=== PATIENT | female | born 1960 | race Caucasian/White ===

== ENCOUNTER → 2023-12-10 | Outpatient (CLI) | payer OTHER, SELFPAY ==
--- NOTE | 2023-12-10 10:18 | US_ITS ---
STUDY: ULTRASOUND OF THE FEMALE PELVIS - COMPLETE REASON FOR EXAM: Female, 63 years old. AUB LMP: Unknown. TECHNIQUE: Transabdominal and Transvaginal TECHNICAL QUALITY: Adequate. COMPARISON: None. FINDINGS: The uterus is retroflexed and is in a midline position. The uterus measures 8.43 x 7.80 x 7.98 cm. Normal uterine cervix. The endometrium measures 5 mm in thickness, and is hyperechoic. There is no demonstrated endometrial mass. Sonography notes at least 3 uterine fibroids with the largest measuring 5.2 x 3.7 x 3.4 cm I.U.D. - The patient does not have an I.U.D. The right ovary is visualized. The right ovary measures 1.8 x 1.5 x 2.4 cm. There is no right ovarian cyst or ovarian mass. There is no visualized right adnexal mass or complex lesion. There is normal arterial and normal venous vascularity. The left ovary is visualized. The left ovary measures 1.5 x 1.1 x 1.3 cm. There is no left ovarian cyst or ovarian mass. There is no visualized left adnexal mass or complex lesion. There is normal arterial and normal venous vascularity. There is no fluid in the cul-de-sac. The bladder is sonographically normal US/Pelvic w/ Transvaginal IMPRESSION: Enlarged fibroid uterus Endometrial thickness is at the upper limits of normal at 5 mm. No suspicious endometrial mass or polyp Sonographically normal ovaries and bladder. Electronically Signed: Fito Silver MD at 15:31 EST ,
--- OUTSIDE RECORDS SUMMARY | 2023-12-10 10:21 | XMS RPT_ITS | CCD ---
Author Name Unknown Address [address] [place] [address] Organization [facility] Care Team Providers Care Jig Mill Operator Name Role Phone CRISTAL AGUAYO Unavailable Unavailable Jocelin Thomson Unavailable Jocelin Thomson Primary Care Provider Jocelin Thomson Unavailable Unavailable Jocelin Thomson Unavailable Unavailab Yudi Sandhu Unavailable Unavailable Jocelin Thomson Primary Care Provider Jocelin Thomson Unavailable [phone] Unavailable Unavailable SHAINA CANNON Admitting Unavailable ALBARO SINGH Attending Unava ilable JOCELIN THOMSON Primary Care CRISTAL Hassan Attending Unavailable CRISTAL AGUAYO Admitting Unavailable JOCELIN THOMSON Primary Care Unavai lable Unavailable Unavailable Unavailable Unavailable Jocelin Thmoson MD Primary Care Provider Sirena Brown Unavailable JOCELIN THOMSON Primary Care FabiennevaCRISTAL Valente Referring Unavailable CRISTAL AGUAYO Attending Unavailable JOCELIN THOMSON Primary Care Unavailab catherine Thomson, Dr. Jocelin Winter Primary Care Un available Disha Bangura Attending Unavailable Lynsey, Dr. Jocelin Winter Attending Un available Lynsey, Dr. Jocelin Winter Referring Un available Lynsey, Dr. Jocelin Winter Primary Care Un available Longsdnisha, Dr. Jocelin Winter Primary Care Un available Disha Bangura Attending Unavailable Lynsey, Dr. 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 Sirena De Leon Referring Unavailable Longsdorf, Jocelin Primary Care Unavailable Longsdorf, Jocelin Attending Unavailable Longsdorf, Jocelin Referring Unavailable Longsdorf, Jocelin Primary Care Unavailable Longsdorf, Jocelin Primary Care Unavailable Bauer, Dr. Becky Alexandra Attending Unav ailable Bauer, Dr. Becky Alexandra Referring Unav ailable Bauer, Dr. Becky Alexandra Attending Unav ailable Longsdorf, Jocelin Primary Care Unavailable Bangura, Jose Disha M Attending Unavailabl e Willem, Ms. Disha Crawford Referring Unavailabl e Longsdorf, Jocelin Primary Care Unavailable BAUERBECKY MCCALL Referring Unavailable LONGSDORF, JOCELIN A Primary Care Unavailab le LONGSDORF JOCELIN A Attending Unavailab le LONGSDORF JOCELIN A Primary Care Unavailab le BAUERBECKY Attending Unavailable LONGSDORF, JOCELIN A Primary Care Unavailab le BAUERBECKY Attending Unavailable LONGSDORF, JOCELIN A Primary Care Unavailab le LONGSDORF JOCLEIN A Attending Unavailab le LONGSDORF JOCELIN A Primary Care Unavailab Jocelin Red MD Primary Care [facility] er ABIGAIL JOVEL Attending Unavailab le JOCELIN THOMSON Primary Care ABIGAIL Loyola Referring Unavailab ABIGAIL De Luna Attending Unavailab le JOCELIN THOMSON Primary Care Fabiennevasondra myers Allergies Allergy Classification Reported Allergen(s) Allergy Type Date of Onset Reaction(s) Facility (9 sources) CT: IODINATED CONTRAST- ORAL AND IV DYE; Translations: [CT: IODINATED CONTRAST- ORAL AND IV DYE] Propensity to adverse reactions to drug 7 Hives, Itching, Other (See Comments) [facility] (20 sources) Iodinated Contrast Media; Translations: [Iodinated Contrast Media] Allergy to drug (finding) 3 Hives, Itching [facility] (6 sources) Iodinated Contrast Media Drug Allergy 7 Hives, Itching, Other (See Comments) [facility] Work Phone: Medications Current Medications Medication Drug Class(es) Dates Sig (Normalized) Sig (Original) azithromycin 250 mg oral tablet (5 sources) Macrolide Antimicrobial Start: 04-25-2023 End: 04-30-2023 azithromycin (Zithromax) 250 mg tablet Indications: Acute sinusitis, recurrence not specified, unspecified location Take 2 tablets (500 mg) by mouth once daily for 1 day, THEN 1 tablet (250 mg) once daily for 4 days. Take 2 tabs (500 mg) by mouth today, than 1 daily for 4 days.. 6 tablet 0 04/25/2023 04/30/2023 Active Completed/Discontinued Medications Medication Drug Class(es) Dates Sig (Normalized) Sig (Original) acetaminophen 325 mg / HYDROcodone bitartrate 5 mg oral tablet (1 source) Opioid Agonist Start: 10-04-2019 End: 10-04-2019 take 1 tablet by mouth every twenty-four hours as needed 1 tablet, Oral, Once as needed, Pain, Starting Jennifer 10/04/19 at 1045, For 1 dose, PACU (only) Whi le in PACU when tolerating orals. Use oral route first, if tolerated.d. brompheniramine maleate 0.4 mg/ml / dextromethorphan hydrobromide 2 mg/ml / pseudoephedrine hydrochloride 6 mg/ml oral solution (11 sources) alpha-Adrenergic Agonist, Uncompetitive C-jdreqe-Q-aspartat e Receptor Antagonist, Sigma-1 Agonist Start: 10-13-2022 take 5 mL by mouth every four to six hours as needed Pseudoeph-Bromp hen-DM 30-2-10 MG/5ML Oral Syrup TAKE 5 ML EVERY 4 TO 6 HOURS NEEDED. Quantity: 150 Refills: 0 Ordered: 13-Oct-2022 Lee MCKEONSirena Start : 13-Oct-2022 Active Problems Active Problems Problem Classification Problem Date Documented Date Episodic/Chronic Esophageal disorders (20 sources) Gastroesophageal reflux disease; Translations: [Esophageal reflux] Onset: 04-25-2023 04-25-2023 Chronic Essential hypertension (20 sources) Essential hypertension; Translations: [Hypertensive disorder] Onset: 04-25-2023 04-25-2023 Chronic Menopausal disorders (6 sources) Postmenopausal bleeding; Translations: [Postmenopausal bleeding] Onset: 08-22-2023 08-27-2023 Chronic Mood disorders (20 sources) Depressive disorder; 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] Onset: 04-25-2023 04-25-2023 Chronic Mycoses (20 sources) Candidiasis of vagina; Translations: [Candidiasis of vulva and vagina] Episodic Other connective tissue disease (8 sources) Swelling of right lower limb; Translations: [Swelling of limb] Episodic Other connective tissue disease (10 sources) Pain in right lower limb; Translations: [Pain in limb] Onset: 08-27-2023 08-27-2023 Episodic Other connective tissue disease (1 source) Calcaneal spur, right foot; Translations: [Calcaneal spur, right foot] Onset: 05-17-2023 Episodic Other connective tissue disease (1 source) Other specified soft tissue disorders; Translations: [Other specified soft tissue disorders] Onset: 05-06-2023 Episodic Other connective tissue disease (1 source) Pain in right leg; Translations: [Pain in right leg] Onset: 05-05-2023 Episodic Other diseases of veins and lymphatics (1 source) Vascular insufficiency; Translations: [Venous insufficiency (chronic) (peripheral)] 11-02-2023 Episodic Other diseases of veins and lymphatics (4 sources) Venous insufficiency (chronic) (peripheral); Translations: [Venous insufficiency (chronic) (peripheral)] Onset: 11-02-2023 Episodic Other lower respiratory disease (7 sources) Cough; Translations: [Cough] Episodic Other non-traumatic joint disorders (12 sources) Pain in right knee; Translations: [Acute pain of right knee] Onset: 05-05-2023 Episodic Other non-traumatic joint disorders (8 sources) Acute ankle pain; Translations: [Pain in joint, ankle and foot] Episodic Other non-traumatic joint disorders (4 sources) Pain in right ankle and joints of right foot; Translations: [Pain in right ankle] Onset: 05-17-2023 Episodic Other nutritional; endocrine; and metabolic disorders (3 sources) Morbid obesity; Translations: [Morbid obesity] Chronic Other nutritional; endocrine; and metabolic disorders (20 sources) Body mass index 40+ - severely obese; Translations: [Body Mass Index 40.0-44.9, adult] Chronic Other nutritional; endocrine; and metabolic disorders (20 sources) Severe obesity; Translations: [Morbid obesity] Onset: 06-14-2023 06-14-2023 Chronic Other nutritional; endocrine; and metabolic disorders (2 sources) Morbid (severe) obesity due to excess calories; Translations: [Morbid (severe) obesity due to excess calories (CMS/HCC)] Onset: 06-14-2023 Chronic Other nutritional; endocrine; and metabolic disorders (2 sources) Body mass index (BMI) 40.0-44.9, adult; Translations: [Body mass index (BMI) 40.0-44.9, adult (CMS/HCC)] Onset: 06-14-2023 Chronic Other and delivery including normal (20 sources) Delivery normal; Translations: [Normal delivery] Episodic Past or Other Problems Problem Classification Problem Date Documented Da te Episodic/Chronic Other connective tissue disease (20 sources) Pain in calf; Translations: [Pain in limb] Resolved: 11-27-2021 Episodic Other connective tissue disease (20 sources) Pain in left lower limb; Translations: [Pain in limb] Resolved: 11-27-2021 Episodic Other screening for suspected conditions (not mental disorders or infectious disease) (20 sources) Patient encounter status; Translations: [Special screening for malignant neoplasms of colon] Onset: 06-14-2023 Episodic Results Test Name Value Interpretation Reference Range Facil ity Vital Signs Date Time Vital Sign Value Performing Clinician Jyoti hardy 11-02-2023 13:25-0500 Diastolic blood pressure 86 mm[Hg] Abigail Jovel MD Work Phone: [facility] Encounters Encounter Date Encounter Type Care Provider Facility Start: 12-09-2023 Orders Only Abigail galvez MD Work Phone: [facility] Procedures Date Procedure Procedure Detail Performing Clinician Start: 08-22-2023 US PELVIS TRANSABDOM INAL WITH TRANSVAGINAL BECKY BAUER Start: 08-22-2023 Us transvaginal Becky Bauer MD Work Phone: Start: 08-16-2023 Microscopic observat ion [Identifier] in Cervix by Cyto stain Sai 1 Start: 07-08-2023 CBC W Auto Different ial panel - Blood JOCELIN THOMSON Start: 07-08-2023 Comprehensive metabo lic 2000 panel - Serum or Plasma JOCELIN THOMSON Start: 07-08-2023 Cyanocobalamin vitamin b-12 JOCELIN THOMSON Start: 07-08-2023 Lipid panel JOCELIN THOMSON Start: 07-08-2023 TSH WITH REFLEX TO F REE T4 IF ABNORMAL JOCELIN THOMSON Start: 07-08-2023 Lipid 1996 panel - S huang or Plasma Becky Bauer MD Work Phone: Start: 07-08-2023 Mammography Becky gregory MD Work Phone: Start: 08-04-2022 Microscopic observat ion [Identifier] in Cervix by Cyto stain Becky Bauer MD Work Phone: Start: 06-21-2022 Mammography Jocelin Thomson MD Work Phone: Start: 05-26-2022 Lipid 1996 panel - S huang or Plasma Jocelin Thomson MD Work Phone: Start: 06-25-2020 Colonoscopy Jocelin Thomson MD Work Phone: Start: 04-28-2020 MG Breast screening Kathy Levy Start: 10-04-2019 Endoscopy of esophagus Cristal Aguayo Work Phone: Start: 10-02-2019 aPTT in Blood by Coagulation assay Cristal Aguayo Work Phone: Start: 10-02-2019 Complete blood count (hemogram) panel - Blood by Automated count Cristal Aguayo Work Phone: Start: 10-02-2019 Creatinine [Mass/vol ume] in Serum or Plasma Cristal Aguayo Work Phone: Start: 10-02-2019 INR in Platelet poor plasma by Coagulation assay Cristal Aguayo Work Phone: Start: 10-02-2019 Potassium [Moles/vol ume] in Serum or Plasma Cristal Aguayo Work Phone: Start: 10-02-2019 12 lead ECG Cristal horne Work Phone: Start: 04-13-2019 Mammography Danya rich Start: 04-06-2019 Microscopic observat ion [Identifier] in Cervix by Cyto stain Danya James Start: 07-20-2018 End: 07-20-2018 aPTT in Blood by Coagulation assay Cristal Aguayo Work Phone: Start: 07-20-2018 End: 07-20-2018 Complete blood count (hemogram) panel - Blood by Automated count Cristal Aguayo Work Phone: Start: 07-20-2018 End: 07-20-2018 Creatinine blood Cristal Aguayo Work Phone: Start: 07-20-2018 End: 07-20-2018 INR in Platelet poor plasma by Coagulation assay Cristal Aguayo Work Phone: Start: 07-20-2018 End: 07-20-2018 Potassium serum plasma/whole blood Cristal Aguayo Work Phone: Start: 07-20-2018 End: 07-20-2018 Ecg routine ecg w/least 12 lds trcg only w/o i&r Cristal Aguayo Work Phone: Start: 10-16-2014 Marin Thomson Work Phone: Plan of Treatment Date Care Activity Detail Author Start: 06-25-2030 Screening for malignant neoplasm of colon [facility] Start: 07-08-2028 Lipid panel Lipid Panel [facility] Start: 05-26-2027 Lipid [address] Lipid Panel [facility] Start: 08-16-2026 Screening for malignant neoplasm of cervix [facility] Start: 08-04-2025 Screening for malignant neoplasm of cervix [facility] Start: 08-16-2024 History and physical examination, annual for health maintenance Wellness Visit [facility] Start: 07-08-2024 Screening for malignant neoplasm of breast Mammogram [facility] Start: 12-20-2023 End: 12-20-2023 Patient encounter procedure 12/20/2023 2:00 PM EST Office Visit [address] [phone] Jocelin Thomson MD [address] [place] [address] [facility] Start: 12-09-2023 End: 12-09-2023 Patient encounter procedure 12/09/2023 2:00 PM EST Office Visit [facility] [address] [phone] [place] [address] [address] Pate Department of [employer] [place] [address] [facility] Start: 11-03-2023 End: 01-03-2025 Ultrasound venous insufficiency exam Ultrasound venous insufficiency exam Vascular Ultrasound Routine Venous insufficiency Expected: 11/03/2023, Expires: 01/03/2025 [facility] Work Phone: Immunizations Immunization Date Immunization Notes Care Provider Fa cili 10-31-2021 Moderna COVID-19 Vaccine 100 MCG/0.5ML Intramuscular Suspension Jocelin Thomson Work Phone: [facility] Work Phone: 02-26-2021 Moderna COVID-19 Vaccine 100 MCG/0.5ML Intramuscular Suspension Jocelin Thomson Work Phone: [facility] Work Phone: 01-30-2021 Moderna COVID-19 Vaccine 100 MCG/0.5ML Intramuscular Suspension Jocelin Thomson Work Phone: [facility] Work Phone: 03-07-2019 zoster vaccine recombinant Jocelin Thomson MD Work Phone: [facility] Work Phone: 03-07-2019 zoster vaccine, kirill Levy [facility] Work Phone: Payers Date Payer Category Payer Unknown [employer] PPO xxxxxxxxxxxx 2014-Present [id number] 2014 Unknown [employer] PPO [id number] 2014-Present [id number] 2014 Unknown 2000 Unknown [id number] 1962 Unknown [id number] 1962 Unknown [id number] 2.16.840.1.866769.3.579.2.900 1962 Unknown [id number] 2.16.840.1.050652.3.579.2.903 1962 Unknown [id number] 2.16.840.1.779389.3.579.2.124 5 1962 Unknown [id number] 2.16.840.1.959586.3.579.2.106 9 1962 Unknown [id number] 2.16.840.1.302606.3.579.2.106 9 1962 Unknown [id number] 2.16.840.1.053732.3.579.2.106 9 1962 Unknown [id number] 2.16.840.1.966830.3.579.2.106 9 1962 Unknown [id number] 2.16.840.1.989529.3.579.2.356 1962 Unknown [id number] 2.16.840.1.181335.3.579.2.356 1962 Unknown [id number] 2.16.840.1.607512.3.579.2.356 1962 Unknown [id number] 2.16.840.1.283694.3.579.2.356 1962 Unknown [id number] 2.16.840.1.443352.3.579.2.356 1962 Unknown [id number] 2.16.840.1.495375.3.579.2.356 1962 Unknown [id number] 2.16.840.1.505604.3.579.2.356 1962 Unknown [id number] 2.16.840.1.991702.3.579.2.124 3 1962 Unknown [id number] 2.16.840.1.460986.3.579.2.124 4 1962 Unknown [id number] 2.16.840.1.772914.3.579.2.124 4 1962 Unknown [id number] 2.16.840.1.366188.3.579.2.124 4 1962 Unknown [id number] 2.16.840.1.787693.3.579.2.124 4 1962 Unknown [id number] 2.16.840.1.239646.3.579.2.903 1960 Unknown [id number] 2.16.840.1.945744.3.579.2.902 Social History Date Type Detail Facility Start: 07-20-2018 End: 10-02-2019 Tobacco smoking status NHIS Never smoker [facility] Start: 1960 Sex Assigned At Not on file O [facility] Start: 10-02-2019 End: 12-09-2023 Alcohol intake Current non-drinker of alcohol (finding) [facility] Start: 10-02-2019 End: 10-05-2019 Tobacco use and exposure Never used [facility] Start: 04-25-2023 End: 12-06-2023 Former smoker Former smoker [facility] Work Phone: Start: 04-25-2023 End: 06-14-2023 Alcohol intake Lifetime non-drinker (finding) [facility] Work Phone: Start: 04-25-2023 End: 12-06-[address] [facility] Work Phone: Start: 04-15-2023 End: 09-16-2023 Exposure to SARS-CoV-2 (event) Not sure [facility] Start: 07-19-2018 Gender identity Identifies as female gender (finding) [facility] Start: 07-19-2018 Sexual orientation Heterosexual (fin ding) [facility] NEGATED: Highlighted row - - [facility] Work Phone: Functional Status Date Assessment Result Facility NEGATED: Highlighted row Functional performance Functional status health issues are not documented Disease [facility] Work Phone: Mental Status Date Assessment Result Facility NEGATED: Highlighted row Cognitive function [Interpretation] Cognitive status health issues are not documented Disease [facility] Work Phone: Clinical Notes 03-19-2021 to 12-09-2023 Assessment & Plan Note - Abigail Jovel MD - 12/09/2023 11:36 AM ESTAssessment & Plan Note - Abigail Jovel MD - 12/09/2023 11:36 AM ESTPatient Instructions Note Date & Type Note Facility 12-09-2023 Evaluation + Plan note Associated Problem(s): Varicose veins of both lower extremities with complications Based on reviewing her , and focusing on the left I am recommending attempted laser ablation using the 400 m laser to the left saphenofemoral junction of the anterior accessory vein, and then Varithena to the remaining vein including the tributaries. At the junction, the AASV is quite tortuous therefore we may not be able to use the laser, however potentially we can drive a needle through it and then laser a portion of it, we will make that decision at the time of the procedure. Therefore, I will work with her insurance company to get this procedure approved both with laser and Varithena. In the meantime she is to continue her conservative therapy. Should that be successful, we could then consider ablating the perforators at zone 8 at a later date. Finally, assuming she has an acceptable result on the left we can then focus our attention to the right lower extremity. [facility] 12-09-2023 Miscellaneous Notes Associated Problem(s): Varicose veins of both lower extremities with complications Based on reviewing her , and focusing on the left I am recommending attempted laser ablation using the 400 m laser to the left saphenofemoral junction of the anterior accessory vein, and then Varithena to the remaining vein including the tributaries. At the junction, the AASV is quite tortuous therefore we may not be able to use the laser, however potentially we can drive a needle through it and then laser a portion of it, we will make that decision at the time of the procedure. Therefore, I will work with her insurance company to get this procedure approved both with laser and Varithena. In the meantime she is to continue her conservative therapy. Should that be successful, we could then consider ablating the perforators at zone 8 at a later date. Finally, assuming she has an acceptable result on the left we can then focus our attention to the right lower extremity. documented in this encounter [facility] 12-09-2023 History of Present illness Narrative Peripheral Vascular Cardiology Telephone Visit Follow-up Heart & Vascular [facility] 12/09/2023 Abigail Jovel MD [address] [facility] [phone] Patient: Adriana Manning Date of : 1960 (63 y.o.) Referring Provider: No ref. provider found PCP: Jocelin Thomson MD Patient Location: Patient's Home Patient phone : [phone] This visit has been fully reviewed with the patient and verbal consent has been obtained. I discussed risks, benefits and alternatives of a video visit telemedicine consultation with the patient (and any accompanying persons) including the risks that the patient's personal health details and medical records will be discussed over real-time, synchronous, interactive video/audio/telecommunication technology, the visit will not be recorded without the express consent of both the provider and the patient, and that there are inherent diagnostic limitations compared to [id number] evaluations. They elected to proceed with the telephone visit telemedicine consultation. Assessment & Plan Varicose veins of both lower extremities with complications Based on reviewing her , and focusing on the left I am recommending attempted laser ablation using the 400 m laser to the left saphenofemoral junction of the anterior accessory vein, and then Varithena to the remaining vein including the tributaries. At the junction, the AASV is quite tortuous therefore we may not be able to use the laser, however potentially we can drive a needle through it and then laser a portion of it, we will make that decision at the time of the procedure. Therefore, I will work with her insurance company to get this procedure approved both with laser and Varithena. In the meantime she is to continue her conservative therapy. Should that be successful, we could then consider ablating the perforators at zone 8 at a later date. Finally, assuming she has an acceptable result on the left we can then focus our attention to the right lower extremity. Subjective History of Present Illness: Adriana Manning is a 63 y.o. female known venous insufficiency and prior stripping of her great saphenous veins. Today, Ms. Manning and I had a telehealth phone conversation to discuss the results of her venous insufficiency test. The patient's left leg is more symptomatic than the right, and therefore we focused on the left leg with respect to what was refluxing, and potential treatment options. She was found to have reflux in the left anterior accessory saphenous vein from the junction to the mid thigh as well as refluxing within tributaries to this region. She has had prior stripping of the left great saphenous vein, and was found to have superficial thrombophlebitis of a tributary. She is also was found to have reflux and to perforators at zone 8. She remains compliant with conservative treatments including compression stockings, exercise, elevation and weight loss if applicable. Objective Imaging: I independently reviewed the venous insufficiency test and agree with the interpretation(s) with the following comments. As above ECG 12 Lead Final Result by Interface, Lab Results In [facility] (10/02/2019 1503) Review of Systems: The following system(s) were reviewed and negative. Pertinent positive and negative findings are noted in the HPI. [x] Const [] Eyes [] ENT [x] Resp [] CV [] GI [] [] Neuro [] Musc [] Skin [] Psych [] Endo [] Allergy [] Heme/Lymph Allergies: Ct: iodinated contrast- oral and iv dye HOME Medications: Current Outpatient Medications on File Prior to Visit Medication Sig cyanocobalamin (vitamin B-12) 500 MCG tablet Take 1 (one) tablet (500 mcg total) by mouth daily . halcinonide (Halog) 0.1 % Crea Apply 1 application topically once as needed . lisinopril (PRINIVIL,ZESTRIL) 20 MG tablet Take 1 (one) tablet (20 mg total) by mouth every morning . nystatin-triamcinolone (MYCOLOG II) cream Apply 1 application topically 3 (three) times a day as needed . omeprazole (PRILOSEC) 20 MG capsule Take 1 (one) capsule (20 mg total) by mouth every morning . venlafaxine (EFFEXOR-XR) 75 MG 24 hr capsule Take 1 (one) capsule (75 mg total) by mouth every morning . No current facility-administered medications on file prior to visit. Provider location: [facility] [address] [facility] [address] [facility] [phone] Patient location: [address] [place] [id number] I have spent 14 minutes with the patient reviewing the HPI and Plan of Care. No results found for: CHOL , LDLCALC , LDLDIRECT , TRIG , HDL documented in this encounter [facility] 12-09-2023 Instructions Deann Salazar RN - 12/09/2023 11:17 AM EST We will see you back in the office: the office will be in touch to schedule your vein procedure with Dr. Jovel Scheduling should reach out to you to schedule testing But if you do not hear from them please call the number below To schedule testing please reach out to [phone] and follow the prompts to scheduling If you need to schedule, cancel or reschedule an appointment please call [place] office [phone] If you have any questions please call VIVEK Zacarias [phone] documented in this encounter [facility] 11-02-2023 Evaluation + Plan note Associated Problem(s): Varicose veins of both lower extremities with complications CEAP 4b VCSS 7 b/l Given the fact that Ms. Manning is having more edema and discoloration in both legs with a prior history of bilateral vein stripping, I am recommending bilateral venous incompetency testing. In the meantime she is to continue conservative medical therapy to include compression stockings, exercise, weight loss, and elevation. Further recommendations will be forthcoming. [facility] 11-02-2023 Miscellaneous Notes Associated Problem(s): Varicose veins of both lower extremities with complications CEAP 4b VCSS 7 b/l Given the fact that Ms. Manning is having more edema and discoloration in both legs with a prior history of bilateral vein stripping, I am recommending bilateral venous incompetency testing. In the meantime she is to continue conservative medical therapy to include compression stockings, exercise, weight loss, and elevation. Further recommendations will be forthcoming. documented in this encounter [facility] 11-02-2023 Instructions Deann Salazar RN - 11/02/2023 1:33 PM EST We will see you back in the office: Dr. Jovel will do a telehealth appt after your testing is complete The following testing has been ordered for you: Venous insufficiency testing to both legs Scheduling should reach out to you to schedule testing But if you do not hear from them please call the number below To schedule testing please reach out to [phone] and follow the prompts to scheduling If you need to schedule, cancel or reschedule an appointment please call [place] office [phone] [place] office [phone] [place] office [phone] If you have any questions please call VIVEK Zacarias [phone] Your provider has ordered a Venous Incompetence Study. Please have the study completed at the [address] [place] [address] office. This test is an ultrasound study of the legs which will show how well the tiny valves in your leg veins are working. Do not wear your compression socks for 24 hours before the testing. Drink plenty of water before the test. May eat normally before the test. You will be given disposable paper shorts to wear during the study. Topical gel will be used on your legs during the ultrasound. You will be standing for much of the study but you can rest if needed. The test may take 1.5 hours depending on the extent of your varicosities. In order to check out the function of your vein valves a large cuff will be placed on your leg to give a quick squeeze at certain times during the test. The results of your test will be reviewed with you at your next appointment. documented in this encounter [facility] 11-02-2023 History of Present illness Narrative Images from the original note were not included. [facility] [address], [address] [place] [address] Adriana Manning is a 63 y.o.female who presents for New Patient evaluation of symptomatic varicose veins with complications on 11/02/23. As you may recall, is a pleasant 63-year-old female who is a self-referral for symptomatic varicose veins. She has a past medical history of hypertension, postoperative superficial thrombophlebitis, and hypertension. In April 2023, she had a lower extremity venous duplex of the right leg that showed no acute DVT. This was done in the setting of leg swelling. Case has requested to see me because she has noticed some discoloration in both lower extremities likely related to her chronic venous insufficiency. She has had history of bilateral superficial vein stripping over 5 years ago. She wears compression stockings regularly, and has not had any venous ulcerations. ASSESSMENT & PLAN My assessment and plan is as follows: Varicose veins of both lower extremities with complications CEAP 4b VCSS 7 b/l Given the fact that Ms. Manning is having more edema and discoloration in both legs with a prior history of bilateral vein stripping, I am recommending bilateral venous incompetency testing. In the meantime she is to continue conservative medical therapy to include compression stockings, exercise, weight loss, and elevation. Further recommendations will be forthcoming. REVIEW OF SYSTEMS As per MA ROS, all other pertinent ROS (positive or negative) was addressed in the HPI Past Medical History: Diagnosis Date Deep vein thrombosis (HCC) 2007/ superficial right leg GERD (gastroesophageal reflux disease) History of stress test greater than 7 years Hypertension PONV (postoperative nausea and vomiting) Thrombophlebitis Past Surgical History: Procedure Laterality Date CHOLECYSTECTOMY DILATION AND CURETTAGE OF UTERUS EGD 08/17/2021 Procedure: ESOPHAGOGASTRODUODENOSCOPY w/ bx; Surgeon: Cristal Aguayo MD; Location: [facility]; Service: Gastroenterology EGD ENDOSCOPIC ULTRASOUND EXAM N/A 02/14/2017 Procedure: EUS WITH ANES ; Surgeon: Cristal Aguayo MD; Location: [facility]; Service: EGD ENDOSCOPIC ULTRASOUND EXAM N/A 07/27/2018 Procedure: EUS WITH FNA WITH ANES; Surgeon: Cristal Aguayo MD; [facility]: [facility]; Service: Gastroenterology EGD ENDOSCOPIC ULTRASOUND EXAM N/A 10/04/2019 Procedure: ESOPHAGOGASTRODUODENOSCOPY ENDOSCOPIC ULTRASOUND; Surgeon: Cristal Aguayo MD; Location: [facility]; Service: Gastroenterology EGD ENDOSCOPIC ULTRASOUND EXAM N/A 08/17/2021 Procedure: EUS WITH ANESTHESIA w/ FNA; Surgeon: Cristal Aguayo MD; Location: [facility]; Service: Gastroenterology TONSILLECTOMY TUBAL LIGATION VASCULAR SURGERY varicose veins Family History Problem Relation Age of Onset No Known Problems Mother Diabetes Father Hypertension Father Stroke Sister Social History Tobacco Use Smoking status: Never Smokeless tobacco: Never Vaping Use Vaping Use: Never used Substance Use Topics Alcohol use: No Drug use: No Current Outpatient Medications Medication Sig Dispense Refill cyanocobalamin (vitamin B-12) 500 MCG tablet Take 1 (one) tablet (500 mcg total) by mouth daily . halcinonide (Halog) 0.1 % Crea Apply 1 application topically once as needed . lisinopril (PRINIVIL,ZESTRIL) 20 MG tablet Take 1 (one) tablet (20 mg total) by mouth every morning . nystatin-triamcinolone (MYCOLOG II) cream Apply 1 application topically 3 (three) times a day as needed . omeprazole (PRILOSEC) 20 MG capsule Take 1 (one) capsule (20 mg total) by mouth every morning . venlafaxine (EFFEXOR-XR) 75 MG 24 hr capsule Take 1 (one) capsule (75 mg total) by mouth every morning . No current facility-administered medications for this visit. Allergies Allergen Reactions Ct: Iodinated Contrast- Oral And Iv Dye Hives, Itching and Other (See Comments) Tachycardic PHYSICAL EXAMINATION Vitals: Vitals: 11/02/23 1323 11/02/23 1325 BP: (!) 152/89 (!) 150/86 BP Location: Left arm Right arm Patient Position: Sitting Sitting BP Cuff Size: Adult Adult Pulse: 91 90 Weight: 134.3 kg (296 lb) Height: 5' 8.5 Physical Exam Constitutional: Patient is oriented to person, place, and time, and appears well-developed. Head: Normocephalic. Eyes: Pupils are equal, round, and reactive to light. Neck: Normal range of motion. Cardiovascular: Normal rate, regular rhythm and normal heart sounds. Pulmonary/Chest: Effort normal and breath sounds normal. Abdominal: Soft. Musculoskeletal: Normal range of motion. Neurological: Patient is alert and oriented to person, place, and time. Skin: Skin is warm and dry. Condon bilateral lower extremity edema with LDS, and clusters of reticular veins bilaterally No grossly visible varicosities bilaterally CEAP 4b b/l VCSS SCORE - VCSS Score RIGHT- PAIN - None; Occasional no meds, Daily with occasional meds; Daily with daily meds - 0 VARICOSE VEINS - None; Few scattered; Multiple confined to thigh/ calf; Extensive - 1 EDEMA - None; Evening, Afternoon, morning -1 SKIN PIGMENTATION - None; focal; malleolus; extensive - 2 INFLAMMATION - None; MIld; Moderate; Severe - 0 INDURATION - None; Focal; Medial ankle; Extensive - 0 NUMBER OF ACTIVE ULCERS - 0; 1; 2; >2 - 0 ACTIVE ULCER DURATION - None; <3 Mo; 3-12 months; >1 YEAR - 0 ACTIVE ULCER DIAMETER None; <2; 2-6; >6 - 0 COMPRESSION THERAPY USE. None; intermittent; most days; Full compliance - 3 Total Score - 7/7 Results for orders placed in visit on 10/02/19 ECG 12 Lead Narrative Normal sinus rhythm Left axis deviation Low voltage QRS Abnormal ECG Confirmed by Rodriguez Hernandez M.D. ([id number]) on 10/02/2019 3:07:51 PM Orders Placed This Encounter Ultrasound venous insufficiency exam cyanocobalamin (vitamin B-12) 500 MCG tablet No follow-ups on file. Please do not hesitate to contact the office at the above number, or directly via my mobile phone number, should you have additional questions or concerns. Thank you for entrusting your patient to our care. Respectfully, Abigail Jovel MD documented in this encounter [facility] 08-29-2023 History of Present illness Narrative Subjective Patient ID: Adriana Manning is a 62 y.o. female who presents for rev us results. HPI Adriana is a 62-year-old woman who comes in to review the results of her ultrasound which was done for postmenopausal bleeding Objective Physical Exam 12/20/2022 2:03 PM 04/25/2023 3:02 PM 05/05/2023 11:29 AM 05/19/2023 3:56 PM 06/09/2023 2:31 PM 06/14/2023 4:23 PM 08/29/2023 11:32 AM Vitals Systolic 124 128 128 116 Diastolic 86 74 84 82 Heart Rate 94 93 86 Temp 37.7 C (99.8 F) 36.9 C (98.5 F) 36.6 C (97.8 F) Height (in) 1.753 m (5' 9 ) 1.753 m (5' 9 ) 1.753 m (5' 9 ) 1.753 m (5' 9 ) 1.727 m (5' 8 ) Weight (lb) 291.5 294 297 295 297.5 294 BMI 43.05 kg/m2 43.42 kg/m2 43.86 kg/m2 43.56 kg/m2 43.93 kg/m2 44.7 kg/m2 BSA (m2) 2.53 m2 2.54 m2 2.56 m2 2.55 m2 2.56 m2 2.53 m2 Visit Report Report Report Report Procedure the patient was placed in the dorsolithotomy position a bivalve speculum was placed into the patient's vagina. The cervix was cleaned with Betadine x3. Using an endometrial Pipelle we made 2 passes of the endometrial cavity and retrieved a moderate amount of tissue. Instruments were then removed from the patient's vagina and cervix patient tolerated the procedure well Assessment/Plan Adriana is here to discuss the results of her ultrasound done for postmenopausal bleeding. The ultrasound revealed a thickened endometrium despite her being on progesterone. Endometrial biopsy was performed today we will call her with the results and follow-up plan documented in this encounter [facility] Work Phone: 08-16-2023 Note 44 Date of Procedure: 08/16/2023 Pathologist: [facility], Cytology Date Reported: 08/31/2023 Date Received: 08/16/2023 Submitting Physician: BECKY BAUER M.D. Attending Physician: BECKY BAUER M.D. FINAL CYTOLOGICAL INTERPRETATION A. THINPREP PAP CERVICAL: Specimen adequacy: SATISFACTORY FOR EVALUATION. Quality Indicator: Endocervical/transformation zone component is present. Quality Indicator: Partially obscuring inflammation. General Categorization: NEGATIVE FOR INTRAEPITHELIAL LESION OR MALIGNANCY. Descriptive Interpretation: FUNGAL ORGANISMS MORPHOLOGICALLY CONSISTENT WITH SHARRI SPECIES. HIGH RISK HPV TEST RESULT: HPV GENOTYPE 16 NEGATIVE HPV GENOTYPE 18 NEGATIVE HPV GENOTYPE OTHER NEGATIVE Reference Range: Negative Testing for high-risk (HR) type of human papilloma virus (HPV) is performed by the [employer] yury HPV Test. The yury HPV Test is a qualitative polymerase chain reaction that amplifies DNA of HPV16, HPV18 and 12 other high-risk HPV types (31, 33, 35, 39, 45, 51, 52, 56, 58, 59, 66, and 68) associated with cervical cancer and its precursor lesions. A positive result indicates the presence of HPV DNA due to one or more of the 14 genotypes: 16, 18, 31, 33, 35, 39, 45, 51, 52, 56, 58, 59, 66, and 68. Negative results indicate HPV DNA concentrations are undetectable or below the pre-set threshold for detection. False negative results may be associated with unoptimized sampling. A negative HR HPV result does not exclude the possibility of future cytologic HSIL or underlying CIN2-3 or cancer. This test is approved for cervical specimens by the [place] Food and Drug Administration. Results of this test should be interpreted in conjunction with the patient?s Pap test results. Please refer to ASCCP current guidelines for the use of HPV DNA testing, result interpretation, and patient management. The performance of this test was verified by the [facility] at [facility]. The lab is certified under the Clinical Laboratory Amendments of 1988 (CLIA 88) as qualified to perform high complexity clinical laboratory testing. Electronically Signed Out By [facility], Cytology//PRYOR/SLD By the signature on this report, the individual or group listed as making the Final Interpretation/Diagnosis certifies that they have reviewed this case. Diagnostic interpretation performed at [facility] [address] [address] [facility] [address] Educational Note: Cervical cytology is a screening procedure primarily for squamous cancers and precursors and has associated false-negative and false-positive results as evidenced by published data. Your patient?s test should be interpreted in this context, together with patient?s history and clinical findings. Regular sampling and follow-up of unexplained clinical signs and symptoms are recommended to minimize false negative results. Clinical History Date of Last Menstrual Period: IUD Contraceptive History: IUD Other Clinical Conditions: COTEST HPV(Genotype) except for ASC-H, HSIL, Carcinoma - Include HPV Genotype testing Clinical Diagnosis History: Encounter for Papanicolaou smear of cervix - (Z12.4) Source of Specimen A: THINPREP PAP CERVICAL [facility] Department of Pathology [id number] [place] [address] documented in this encounter [facility] Work Phone: Evaluation note* Diagnosis Endometrial thickening on ultrasound- Primary documented in this encounter [facility] Work Phone: Evaluation note* Diagnosis Postmenopausal bleeding documented in this encounter [facility] Work Phone: Evaluation note* Diagnosis Venous insufficiency- Primary Unspecified venous (peripheral) insufficiency Varicose veins of both lower extremities with complications [facility] Varicose veins of both lower extremities with complications- Primary [facility] Diagnosis Varicose veins of both lower extremities with complications- Primary [facility] Present illness NarrativeHere for routine f/u HTN, GERD, peripheral edema, depression. She states that she is doing well. noconcerns at this time.[facility] Work Phone: History of Present illness NarrativePresents for annual exam. She voices no complaints and is doing well. Denies any bowel or bladder problems. Denies any breast problems. Denies any postmenopausal bleeding. Patient has family history of ovarian cancer which she has had pelvic ultrasounds obtained for screening in the past.[facility] [employer] Work Phone: History of Present illness NarrativeShe presents for endometrial biopsy due to recent pelvic ultrasound showing thickened endometrium. She denies any postmenopausal bleeding.[facility] [address] [place] [address] Work Phone: History of Present illness NarrativeHere for routine f/u HTN, GERD, peripheral edema, depression. She has been dealing with URI symptoms for a couple of weeks. She took a Zpak and some cough medication - states that she is feeling better but still having a cough at night. We discussed some options and she will try some benadryl in the evening. Otherwise she is doing well.[facility] [address] DO Work Phone: History of Present illness NarrativeHere for routine f/u HTN, GERD, peripheral edema, depression.[facility] Work Phone: History of Present illness NarrativeHere for routine f/u HTN, GERD, peripheral edema, depression. She is doing well, no specific c/o atthis time other than some BELLY PACKER issues she is seeing Dr Amos about.[facility] Work Phone: History of Present illness NarrativePatient presents for follow-up after having the Provera increased to 20 mg daily due to endometrialbiopsy showing proliferative phase endometrium. Patient states that the bleeding has decreased but will have some spotting about once a day for most of the month.[address] Work Phone: History of Present illness NarrativePresents for annual exam. She voices no complaints and is doing well. Denies any bowel or bladder problems. Denies any breast problems. She is doing well on the Provera after increasing to 30 mg daily.[address] Work Phone: History of Present illness NarrativeHere for routine f/u HTN, GERD, peripheral edema, depression. She is doing well, no specific c/o atthis time. She does continue to struggle with her weight - we discussed Wegovy and she is interested in trying this.[facility] Work Phone: History of Present illness Narrative* Sx improving significantly, some swelling remains. * Weaned off crutches, no braces or wraps needed. * + dependent edema, improves with elevation and ice. [facility] [address] Work Phone: History of Present illness NarrativeRobmildred is a pleasant 62-year-old female here for 2-week follow-up of right lower leg injury. Sx improving significantly, some swelling remains. Duplex ultrasound completed after last visit was negative for DVT.+ dependent edema, improves with elevation and ice. Weaned off crutches, no braces or wraps needed. No OTC medications currently being used as symptoms are well managed at this time. Patient states she has full range of motion of both the knee and ankle.[facility] [address] Work Phone: History of Present illness Narrative* Adriana is a pleasant 62-year-old female here for 5-week follow-up of right lower leg injury. Sx improving significantly, some swelling remains. dependent edema occurring less frequently, improves with elevation and ice. Patient had good results with short-term Lasix every other day and topical diclofenac gel. No OTCs needed for sx control * Was wearing Heladio wrap, however it started to bother and dry out her skin so she has not been wearing. Patient denies any pain, has full range of motion of knee, ankle and foot with no symptom aggravation. She has resumed her normal activities and is tolerating without difficulties. [facility] [address] Work Phone: History of Present illness NarrativePatient is a 62-year-old woman who comes in for routine BELLY PACKER exam.. She reports that she went through menopause and after menopause she stopped bleeding but then started bleeding heavy clots several years later She was started on provera 10 mg daily and eventually increased to 30 mg daily. She does not believe she has had an endometrial biopsy but she thinks she may have had an ultrasound. She still continues to bleed episodically. She is up-to-date on her mammograms and her colonoscopies[address] Work Phone: Summary Purpose Family History Grandparent Name Dates Details Family history of type 2 robb betes mellitus(V18.0, Z83.3) Status:Active Family history of heart fail ure(V17.49, Z82.49) Status:Active Family history of malignant neoplasm of colon(V16.0, Z80.0) Status:Active aunt Name Dates Details Family history of malignant neoplasm of ovary(V16.41, Z80.41) Status:Active Father Name Dates Details Family history of type 2 robb betes mellitus(V18.0, Z83.3) Status:Active Family history of hypertensi on(V17.49, Z82.49) Status:Active Grandparent Name Dates Details Family history of type 2 robb betes mellitus(V18.0, Z83.3) Status:Active Family history of heart fail ure(V17.49, Z82.49) Status:Active Family history of malignant neoplasm of colon(V16.0, Z80.0) Status:Active aunt Name Dates Details Family history of malignant neoplasm of ovary(V16.41, Z80.41) Status:Active Father Name Dates Details Family history of type 2 robb betes mellitus(V18.0, Z83.3) Status:Active Family history of hypertensi on(V17.49, Z82.49) Status:Active Grandparent Name Dates Details Family history of type 2 robb betes mellitus(V18.0, Z83.3) Status:Active Family history of heart fail ure(V17.49, Z82.49) Status:Active Family history of malignant neoplasm of colon(V16.0, Z80.0) Status:Active aunt Name Dates Details Family history of malignant neoplasm of ovary(V16.41, Z80.41) Status:Active Father Name Dates Details Family history of type 2 robb betes mellitus(V18.0, Z83.3) Status:Active Family history of hypertensi on(V17.49, Z82.49) Status:Active Unknown Family Member Name Dates Details Family history of type 2 robb betes mellitus: Grandparent, Father(V18.0, Z83.3) Status:Active Family history of heart fail ure: Grandparent(V17.49, Z82.49) Status:Active Family history of hypertensi on: Father(V17.49, Z82.49) Status:Active Family history of malignant neoplasm of ovary: Aunt(V16.41, Z80.41) Status:Active Family history of malignant neoplasm of colon: Grandparent(V16.0, Z80.0) Status:Active Unknown Family Member Name Dates Details Family history of type 2 robb betes mellitus: Grandparent, Father(V18.0, Z83.3) Status:Active Family history of heart fail ure: Grandparent(V17.49, Z82.49) Status:Active Family history of hypertensi on: Father(V17.49, Z82.49) Status:Active Family history of malignant neoplasm of ovary: Aunt(V16.41, Z80.41) Status:Active Family history of malignant neoplasm of colon: Grandparent(V16.0, Z80.0) Status:Active Unknown Family Member Name Dates Details Family history of type 2 robb betes mellitus: Grandparent, Father(V18.0, Z83.3) Status:Active Family history of heart fail ure: Grandparent(V17.49, Z82.49) Status:Active Family history of hypertensi on: Father(V17.49, Z82.49) Status:Active Family history of malignant neoplasm of ovary: Aunt(V16.41, Z80.41) Status:Active Family history of malignant neoplasm of colon: Grandparent(V16.0, Z80.0) Status:Active Unknown Family Member Name Dates Details Family history of malignant neoplasm of colon: Grandparent(V16.0, Z80.0) Status:Active Family history of type 2 robb betes mellitus: Grandparent, Father(V18.0, Z83.3) Status:Active Family history of malignant neoplasm of ovary: Aunt(V16.41, Z80.41) Status:Active Family history of hypertensi on: Father(V17.49, Z82.49) Status:Active Family history of heart fail ure: Grandparent(V17.49, Z82.49) Status:Active Unknown Family Member Name Dates Details Family history of malignant neoplasm of ovary: Aunt(V16.41, Z80.41) Status:Active Family history of malignant neoplasm of colon: Grandparent(V16.0, Z80.0) Status:Active Family history of hypertensi on: Father(V17.49, Z82.49) Status:Active Family history of heart fail ure: Grandparent(V17.49, Z82.49) Status:Active Family history of type 2 robb betes mellitus: Grandparent, Father(V18.0, Z83.3) Status:Active Unknown Family Member Name Dates Details Family history of type 2 robb betes mellitus: Grandparent, Father(V18.0, Z83.3) Status:Active Family history of heart fail ure: Grandparent(V17.49, Z82.49) Status:Active Family history of hypertensi on: Father(V17.49, Z82.49) Status:Active Family history of malignant neoplasm of colon: Grandparent(V16.0, Z80.0) Status:Active Family history of malignant neoplasm of ovary: Aunt(V16.41, Z80.41) Status:Active Unknown Family Member Name Dates Details Family history of type 2 robb betes mellitus: Grandparent, Father(V18.0, Z83.3) Status:Active Family history of heart fail ure: Grandparent(V17.49, Z82.49) Status:Active Family history of hypertensi on: Father(V17.49, Z82.49) Status:Active Family history of malignant neoplasm of colon: Grandparent(V16.0, Z80.0) Status:Active Family history of malignant neoplasm of ovary: Aunt(V16.41, Z80.41) Status:Active Unknown Family Member Name Dates Details Family history of type 2 robb betes mellitus: Grandparent, Father(V18.0, Z83.3) Status:Active Family history of heart fail ure: Grandparent(V17.49, Z82.49) Status:Active Family history of hypertensi on: Father(V17.49, Z82.49) Status:Active Family history of malignant neoplasm of colon: Grandparent(V16.0, Z80.0) Status:Active Family history of malignant neoplasm of ovary: Aunt(V16.41, Z80.41) Status:Active Unknown Family Member Name Dates Details Family history of type 2 robb betes mellitus: Grandparent, Father(V18.0, Z83.3) Status:Active Family history of heart fail ure: Grandparent(V17.49, Z82.49) Status:Active Family history of hypertensi on: Father(V17.49, Z82.49) Status:Active Family history of malignant neoplasm of colon: Grandparent(V16.0, Z80.0) Status:Active Family history of malignant neoplasm of ovary: Aunt(V16.41, Z80.41) Status:Active Unknown Family Member Name Dates Details Family history of type 2 robb betes mellitus: Grandparent, Father(V18.0, Z83.3) Status:Active Family history of heart fail ure: Grandparent(V17.49, Z82.49) Status:Active Family history of hypertensi on: Father(V17.49, Z82.49) Status:Active Family history of malignant neoplasm of colon: Grandparent(V16.0, Z80.0) Status:Active Family history of malignant neoplasm of ovary: Aunt(V16.41, Z80.41) Status:Active Unknown Family Member Name Dates Details Family history of type 2 robb betes mellitus: Grandparent, Father(V18.0, Z83.3) Status:Active Family history of heart fail ure: Grandparent(V17.49, Z82.49) Status:Active Family history of hypertensi on: Father(V17.49, Z82.49) Status:Active Family history of malignant neoplasm of colon: Grandparent(V16.0, Z80.0) Status:Active Family history of malignant neoplasm of ovary: Aunt(V16.41, Z80.41) Status:Active Unknown Family Member Name Dates Details Family history of type 2 robb betes mellitus: Grandparent, Father(V18.0, Z83.3) Status:Active Family history of heart fail ure: Grandparent(V17.49, Z82.49) Status:Active Family history of hypertensi on: Father(V17.49, Z82.49) Status:Active Family history of malignant neoplasm of colon: Grandparent(V16.0, Z80.0) Status:Active Family history of malignant neoplasm of ovary: Aunt(V16.41, Z80.41) Status:Active Unknown Family Member Name Dates Details Family history of type 2 robb betes mellitus: Grandparent, Father(V18.0, Z83.3) Status:Active Family history of heart fail ure: Grandparent(V17.49, Z82.49) Status:Active Family history of hypertensi on: Father(V17.49, Z82.49) Status:Active Family history of malignant neoplasm of colon: Grandparent(V16.0, Z80.0) Status:Active Family history of malignant neoplasm of ovary: Aunt(V16.41, Z80.41) Status:Active Unknown Family Member Name Dates Details Family history of type 2 robb betes mellitus: Grandparent, Father(V18.0, Z83.3) Status:Active Family history of heart fail ure: Grandparent(V17.49, Z82.49) Status:Active Family history of hypertensi on: Father(V17.49, Z82.49) Status:Active Family history of malignant neoplasm of colon: Grandparent(V16.0, Z80.0) Status:Active Family history of malignant neoplasm of ovary: Aunt(V16.41, Z80.41) Status:Active Unknown Family Member Name Dates Details Family history of malignant neoplasm of ovary: Aunt(V16.41, Z80.41) Status:Active Family history of malignant neoplasm of colon: Grandparent(V16.0, Z80.0) Status:Active Family history of hypertensi on: Father(V17.49, Z82.49) Status:Active Family history of heart fail ure: Grandparent(V17.49, Z82.49) Status:Active Family history of type 2 robb betes mellitus: Grandparent, Father(V18.0, Z83.3) Status:Active Unknown Family Member Name Dates Details Family history of type 2 robb betes mellitus: Grandparent, Father(V18.0, Z83.3) Status:Active Family history of heart fail ure: Grandparent(V17.49, Z82.49) Status:Active Family history of hypertensi on: Father(V17.49, Z82.49) Status:Active Family history of malignant neoplasm of colon: Grandparent(V16.0, Z80.0) Status:Active Family history of malignant neoplasm of ovary: Maternal Aunt(V16.41, Z80.41) Status:Active Unknown Family Member Name Dates Details Family history of type 2 robb betes mellitus: Grandparent, Father(V18.0, Z83.3) Status:Active Family history of heart fail ure: Grandparent(V17.49, Z82.49) Status:Active Family history of hypertensi on: Father(V17.49, Z82.49) Status:Active Family history of malignant neoplasm of colon: Grandparent(V16.0, Z80.0) Status:Active Family history of malignant neoplasm of ovary: Maternal Aunt(V16.41, Z80.41) Status:Active Unknown Family Member Name Dates Details Family history of malignant neoplasm of ovary: Maternal Aunt(V16.41, Z80.41) Status:Active Family history of malignant neoplasm of colon: Grandparent(V16.0, Z80.0) Status:Active Family history of hypertensi on: Father(V17.49, Z82.49) Status:Active Family history of heart fail ure: Grandparent(V17.49, Z82.49) Status:Active Family history of type 2 robb betes mellitus: Grandparent, Father(V18.0, Z83.3) Status:Active Unknown Family Member Name Dates Details Family history of type 2 robb betes mellitus: Grandparent, Father(V18.0, Z83.3) Status:Active Family history of heart fail ure: Grandparent(V17.49, Z82.49) Status:Active Family history of hypertensi on: Father(V17.49, Z82.49) Status:Active Family history of malignant neoplasm of colon: Grandparent(V16.0, Z80.0) Status:Active Family history of malignant neoplasm of ovary: Maternal Aunt(V16.41, Z80.41) Status:Active Unknown Family Member Name Dates Details Family history of type 2 robb betes mellitus: Grandparent, Father(V18.0, Z83.3) Status:Active Family history of heart fail ure: Grandparent(V17.49, Z82.49) Status:Active Family history of hypertensi on: Father(V17.49, Z82.49) Status:Active Family history of malignant neoplasm of colon: Grandparent(V16.0, Z80.0) Status:Active Family history of malignant neoplasm of ovary: Maternal Aunt(V16.41, Z80.41) Status:Active Unknown Family Member Name Dates Details Family history of type 2 robb betes mellitus: Grandparent, Father(V18.0, Z83.3) Status:Active Family history of heart fail ure: Grandparent(V17.49, Z82.49) Status:Active Family history of hypertensi on: Father(V17.49, Z82.49) Status:Active Family history of malignant neoplasm of colon: Grandparent(V16.0, Z80.0) Status:Active Family history of malignant neoplasm of ovary: Maternal Aunt(V16.41, Z80.41) Status:Active Unknown Family Member Name Dates Details Family history of malignant neoplasm of ovary: Maternal Aunt(V16.41, Z80.41) Status:Active Family history of malignant neoplasm of colon: Grandparent(V16.0, Z80.0) Status:Active Family history of hypertensi on: Father(V17.49, Z82.49) Status:Active Family history of heart fail ure: Grandparent(V17.49, Z82.49) Status:Active Family history of type 2 robb betes mellitus: Grandparent, Father(V18.0, Z83.3) Status:Active Unknown Family Member Name Dates Details Family history of malignant neoplasm of ovary: Maternal Aunt(V16.41, Z80.41) Status:Active Family history of malignant neoplasm of colon: Grandparent(V16.0, Z80.0) Status:Active Family history of hypertensi on: Father(V17.49, Z82.49) Status:Active Family history of heart fail ure: Grandparent(V17.49, Z82.49) Status:Active Family history of type 2 robb betes mellitus: Grandparent, Father(V18.0, Z83.3) Status:Active Unknown Family Member Name Dates Details Family history of type 2 robb betes mellitus: Grandparent, Father(V18.0, Z83.3) Status:Active Family history of heart fail ure: Grandparent(V17.49, Z82.49) Status:Active Family history of hypertensi on: Father(V17.49, Z82.49) Status:Active Family history of malignant neoplasm of colon: Grandparent(V16.0, Z80.0) Status:Active Family history of malignant neoplasm of ovary: Maternal Aunt(V16.41, Z80.41) Status:Active Unknown Family Member Name Dates Details Family history of malignant neoplasm of ovary: Maternal Aunt(V16.41, Z80.41) Status:Active Family history of malignant neoplasm of colon: Grandparent(V16.0, Z80.0) Status:Active Family history of hypertensi on: Father(V17.49, Z82.49) Status:Active Family history of heart fail ure: Grandparent(V17.49, Z82.49) Status:Active Family history of type 2 robb betes mellitus: Grandparent, Father(V18.0, Z83.3) Status:Active Unknown Family Member Name Dates Details Family history of type 2 robb betes mellitus: Grandparent, Father(V18.0, Z83.3) Status:Active Family history of heart fail ure: Grandparent(V17.49, Z82.49) Status:Active Family history of hypertensi on: Father(V17.49, Z82.49) Status:Active Family history of malignant neoplasm of colon: Grandparent(V16.0, Z80.0) Status:Active Family history of malignant neoplasm of ovary: Maternal Aunt(V16.41, Z80.41) Status:Active Unknown Family Member Name Dates Details Family history of type 2 robb betes mellitus: Grandparent, Father(V18.0, Z83.3) Status:Active Family history of heart fail ure: Grandparent(V17.49, Z82.49) Status:Active Family history of hypertensi on: Father(V17.49, Z82.49) Status:Active Family history of malignant neoplasm of colon: Grandparent(V16.0, Z80.0) Status:Active Family history of malignant neoplasm of ovary: Maternal Aunt(V16.41, Z80.41) Status:Active Unknown Family Member Name Dates Details Family history of malignant neoplasm of ovary: Maternal Aunt(V16.41, Z80.41) Status:Active Family history of malignant neoplasm of colon: Grandparent(V16.0, Z80.0) Status:Active Family history of hypertensi on: Father(V17.49, Z82.49) Status:Active Family history of heart fail ure: Grandparent(V17.49, Z82.49) Status:Active Family history of type 2 robb betes mellitus: Grandparent, Father(V18.0, Z83.3) Status:Active Unknown Family Member Name Dates Details Family history of type 2 robb betes mellitus: Grandparent, Father(V18.0, Z83.3) Status:Active Family history of heart fail ure: Grandparent(V17.49, Z82.49) Status:Active Family history of hypertensi on: Father(V17.49, Z82.49) Status:Active Family history of malignant neoplasm of colon: Grandparent(V16.0, Z80.0) Status:Active Family history of malignant neoplasm of ovary: Maternal Aunt(V16.41, Z80.41) Status:Active Unknown Family Member Name Dates Details Family history of type 2 robb betes mellitus: Grandparent, Father(V18.0, Z83.3) Status:Active Family history of heart fail ure: Grandparent(V17.49, Z82.49) Status:Active Family history of hypertensi on: Father(V17.49, Z82.49) Status:Active Family history of malignant neoplasm of colon: Grandparent(V16.0, Z80.0) Status:Active Family history of malignant neoplasm of ovary: Maternal Aunt(V16.41, Z80.41) Status:Active Unknown Family Member Name Dates Details Family history of type 2 robb betes mellitus: Grandparent, Father(V18.0, Z83.3) Status:Active Family history of heart fail ure: Grandparent(V17.49, Z82.49) Status:Active Family history of hypertensi on: Father(V17.49, Z82.49) Status:Active Family history of malignant neoplasm of colon: Grandparent(V16.0, Z80.0) Status:Active Family history of malignant neoplasm of ovary: Maternal Aunt(V16.41, Z80.41) Status:Active Unknown Family Member Name Dates Details Family history of malignant neoplasm of ovary: Maternal Aunt(V16.41, Z80.41) Status:Active Family history of malignant neoplasm of colon: Grandparent(V16.0, Z80.0) Status:Active Family history of hypertensi on: Father(V17.49, Z82.49) Status:Active Family history of heart fail ure: Grandparent(V17.49, Z82.49) Status:Active Family history of type 2 robb betes mellitus: Grandparent, Father(V18.0, Z83.3) Status:Active Unknown Family Member Name Dates Details Family history of type 2 robb betes mellitus: Grandparent, Father(V18.0, Z83.3) Status:Active Family history of heart fail ure: Grandparent(V17.49, Z82.49) Status:Active Family history of hypertensi on: Father(V17.49, Z82.49) Status:Active Family history of malignant neoplasm of colon: Grandparent(V16.0, Z80.0) Status:Active Family history of malignant neoplasm of ovary: Maternal Aunt(V16.41, Z80.41) Status:Active Unknown Family Member Name Dates Details Family history of type 2 robb betes mellitus: Grandparent, Father(V18.0, Z83.3) Status:Active Family history of heart fail ure: Grandparent(V17.49, Z82.49) Status:Active Family history of hypertensi on: Father(V17.49, Z82.49) Status:Active Family history of malignant neoplasm of colon: Grandparent(V16.0, Z80.0) Status:Active Family history of malignant neoplasm of ovary: Maternal Aunt(V16.41, Z80.41) Status:Active Unknown Family Member Name Dates Details Family history of malignant neoplasm of ovary: Maternal Aunt(V16.41, Z80.41) Status:Active Family history of malignant neoplasm of colon: Grandparent(V16.0, Z80.0) Status:Active Family history of hypertensi on: Father(V17.49, Z82.49) Status:Active Family history of heart fail ure: Grandparent(V17.49, Z82.49) Status:Active Family history of type 2 robb betes mellitus: Grandparent, Father(V18.0, Z83.3) Status:Active Unknown Family Member Name Dates Details Family history of type 2 robb betes mellitus: Grandparent, Father(V18.0, Z83.3) Status:Active Family history of heart fail ure: Grandparent(V17.49, Z82.49) Status:Active Family history of hypertensi on: Father(V17.49, Z82.49) Status:Active Family history of malignant neoplasm of colon: Grandparent(V16.0, Z80.0) Status:Active Family history of malignant neoplasm of ovary: Maternal Aunt(V16.41, Z80.41) Status:Active Advance Directives Documents on File Type Date Recorded Patient Periodontal Assistant Expl anation Advance Directives and Livin g Will 10/02/2019 7:59 AM Documents on File Type Date Recorded Patient Periodontal Assistant Expl anation Advance Directives and Livin g Will 10/04/2019 8:26 AM Assessments Diagnosis Preop examination - Primary Unspecified pre-operative examination Pancreatic cyst Cyst and pseudocyst of pancreas Morbid obesity (HCC) Morbid obesity Essential hypertension Unspecified essential hypertension History of DVT (deep vein th rombosis) Diagnosis Preop examination- Primary Unspecified pre-operative examination Pancreatic cyst Cyst and pseudocyst of pancreas Essential hypertension Unspecified essential hypertension Gastroesophageal reflux disease, esophagitis presence not specified Instructions Name Dates Details Instructions not documented Name Dates Details Instructions not documented Name Dates Details Instructions not documented Discharge Instructions * Attachments The following attachments cannot be sent through Care Everywhere. * EGD (Upper Endoscopy): Post-op ([place]) * Ultrasound: Endoscopic (Oral): Post-op ([place]) * Anesthesia: General Info ([place]) documented in this encounter Chief Complaint Patient presents for 6mo f/u stating no concernsPatient is here for her yearly exam and pap test. Menopause in 2014. Patient does self breast examsand has no concerns at this time.Patient is here for Endometrial Biopsy d/t thickened endometrium. Menopause in 2014.6 month check up, Covid test 11/15 and it was negative, virtual 11/16 and 11/21 and still has sinus and chest congestion symptoms started 11/12, requesting a stronger cough medicine6 month check up, Covid test 11/15 and it was negative, virtual 11/16 and 11/21 and still has sinus and chest congestion symptoms started 11/12, requesting a stronger cough medicinePatient is her to discuss hysterectomy. Patient had PMB last year and was started on Provera. Patient stated it was working well but is now having spotting bleeding. Menopause in 2015.Pt presents for routine 6 mo check up; med review and refills; is fasting for labs today.Pt presents for routine 6 mo check up; med review and refills; is fasting for labs today.Patient is here for follow up from starting Progesterone. Patient states she is doing better but is still having small amounts of spotting.Patient is here for her yearly exam and pap test. Menopause in 2014. Patient does not do regular self breast exams and has no concerns at this time.Patient is here for her yearly exam and pap test. Menopause in 2015. Patient does not do regular self breast exams and has no concerns at this time.6 mo f/uNEW PT HERE WITH C/O R KNEE PAIN AFTER HAVING A FALL THIS PAST TUESDAY. STATES HER PAIN RADIATES FROM THE BOTTOM OF HER KNEE DOWN HER FOX. DECREASED OR LIMITED RANGE OF MOTION DUE TO PAIN. XRAYS DONETODAY. SELF REFERRAL.NEW PT HERE WITH C/O R KNEE PAIN AFTER HAVING A FALL THIS PAST TUESDAY. STATES HER PAIN RADIATES FROM THE BOTTOM OF HER KNEE DOWN HER FOX. DECREASED OR LIMITED RANGE OF MOTION DUE TO PAIN. XRAYS DONETODAY. SELF REFERRAL.* PATIENT PRESENTS TO OFFICE FOR : F/U R KNEE PAIN * ONSET: * DOI / DOS: * IMPROVED: * PAIN: * PAIN MEDS TAKEN: * ROM: * ICE / HEAT APPLIED: * BRACE WORN: * LAST INJECTION: * REFERRAL: * ACCOMPANIED BY: PATIENT PRESENTS TO OFFICE FOR : F/U R KNEE PAIN* PATIENT PRESENTS TO OFFICE FOR : F/U R KNEE * diclofenac did not help * ONSET: na * DOI / DOS: na * IMPROVED: some, still swollen * PAIN: 0 * PAIN MEDS TAKEN: lasix * BRACE WORN: no * LAST INJECTION: no * REFERRAL:na * ACCOMPANIED BY: SELF Patient presents for annual exam. Last pap 08/04/2022. Mammogram 07/08/23. Patient is menopausal. Patient is still having bleeding. She would like to discuss a hysterectomy. Reason for Referral Specialty Diagnoses / Procedures Referred By Ricardo agarwal Referred To Contact Radiology Diagnoses Postmenopausal bleeding Procedures US PELVIS TRANSABDOMINAL WITH TRANSVAGINAL US pelvis transvaginal Becky Bauer MD [address] [place] [address] [facility] Medical Office, [address] [address] Referral ID Status Reason Start Date Expiration Date Visits Requested Visits Authorized [id number] Pending Review Perform Procedure 08/16/2023 02/12/2024 1 1 Specialty Diagnoses / Procedures Referred By Contac t Referred To Contact Cardiology Diagnoses Venous insufficiency Procedures Ultrasound venous insufficiency exam Abigail Jovel MD [address] [facility] [address] [place] [address] Referral ID Status Reason Start Date Expiration Date V isits Requested Visits Authorized [id number] Authorized 11/03/2023 11/02/2024 1 1 Specialty Diagnoses / Procedures Referred By Contac t Referred To Contact Wound Care Diagnoses Varicose veins of both lower extremities with complications Abigail Jovel MD [address] [facility] [address] [place] [phone] [facility] [address] [place] [address] Referral ID Status Reason Start Date Expiration Date Visits Requested Visits Authorized [id number] Authorized Specialty Services Required/Pat ient's Best Interest 12/10/2023 12/09/2024 1 1 Additional Source Comments INFORMATION SOURCE (unrecogn ized section and content) DATE CREATED AUTHOR AUTHOR'S ORGANIZ ATION 05/10/2018 [facility] DATE CREATED AUTHOR AUTHOR'S ORGANIZ ATION [facility]29/[facility] DATE CREATED AUTHOR AUTHOR'S ORGANIZ ATION 06/09/2019 [facility] DATE CREATED AUTHOR AUTHOR'S ORGANIZ ATION 08/28/2021 [facility] DATE CREATED AUTHOR AUTHOR'S ORGANIZ ATION 07/01/2023 [facility] DATE CREATED AUTHOR AUTHOR'S ORGANIZ ATION 07/12/2023 [facility] DATE CREATED AUTHOR AUTHOR'S ORGANIZ ATION 07/13/2023 [facility] DATE CREATED AUTHOR AUTHOR'S ORGANIZ ATION 08/24/2023 [facility] DATE CREATED AUTHOR AUTHOR'S ORGANIZ ATION 09/02/2023 [facility] DATE CREATED AUTHOR AUTHOR'S ORGANIZ ATION 09/18/2023 [facility] DATE CREATED AUTHOR AUTHOR'S ORGANIZ ATION 09/19/2023 [facility] DATE CREATED AUTHOR AUTHOR'S ORGANIZ ATION 11/05/2023 [facility] DATE CREATED AUTHOR AUTHOR'S ORGANIZ ATION 12/07/2023 [facility] Ramirez, - 07/20/2018 11:24 AM Corrina Terrell MD - 10/02/2019 9:19 AM Corrina Andres MD - 10/02/2019 9:19 AM EST H&P Notes (unrecognized sect ion and content) Formatting of this note may be different from the original. Adriana Ellis Kerri 1960 Encounter Diagnoses Name Primary? Preop examination Yes Pancreatic cyst Morbid obesity (HCC) Essential hypertension History of DVT (deep vein thrombosis) Procedure: EUS Surgeon: Dr. Horton PCP: Jocelin Thomson MD Cardiology: None Date of Procedure: 07/27/18 Dictation on: 07/20/2018 3:48 PM by: ALBARO SINGH [[id number]] 1. ASA =3 . 2. RCRI =0. (Score/Risk of Major Cardiac Outcomes - 0/0.4%, 1/0.9%, 2/2.4%, 3 or more/>5.4%. This may overestimate the cardiac risks in lower risk procedures and underestimate the risks in vascular procedures. This study has been externally validated.) 3. Caprini Score = 8. (Score/Risk of Symptomatic VTE = 0/<0.5%, 1-2/1.5%, 3- 4/3.0%, 5 or greater/6% or greater). 4. Apfel Score = 4. (Score/Risk of PONV = 0/10%, 1/21%, 2/39%, 3/61%, 4/79%) This score has been externally validated. Plan: 1. The patient falls into an acceptable cardiac risk for category for their planned procedure per 2014 ACC Guidelines and Recommendations. 2. Endocarditis prophylaxis is not required per 2017 ACC/AHA Guidelines and Recommendations. 3. Avoid/limit perioperative hypothermia. 4. Perioperative thromboembolic prophylaxis is recommended per 2016 ACCP Guidelines and Recommendations (or 2011 AAOS Guidelines for orthopedic procedures, or 2008 KEYANA Guidelines for neurosurgical procedures). 5. The patient s head of the bed should be elevated to 30 degrees post- operatively unless contraindicated by the procedure. 6. The patient has been advised to discontinue NSAID s and alternative medicines (Vitamins, herbals, etc.) seven days prior to surgery. Perioperative management of the patient's antiplatelet therapy is recommended per the 2016 ACC/AHA Guidelines - Focused Update on Duration of Dual Antiplatelet Therapy in Patient's With Coronary Artery Disease or in accordance with their party supply specialist's recommendations. 7. The patient may use appropriate amounts of acetaminophen pre-operatively for pain management if not allergic and if no history of liver disease. 8. The patient was advised to follow the current [facility] guidelines regarding fluid intake after midnight and to take any recommended medications on the morning of surgery with a sip of water. 9. Ordered laboratory tests will be reviewed pre-operatively for any pertinent abnormalities. 10. Post-operative spirometry/volurex, deep breathing maneuvers, and early ambulation is recommended if not contraindicated by the procedure. 11. This report will be made available to the requesting surgeon through the electronic medical records. 1. The patient does not meet criteria for the initiation of perioperative beta-blockers per 2017 ACC Guidelines and Recommendations. 1. The patient was advised to alert anesthesia on the day of surgery of their tendency toward post-operative nausea and vomiting/motion sickness. 1. The patient was advised to refrain from taking their HELADIO inhibitors or ARB's on the morning of surgery per [facility] Anesthesia recommendations. Dictation on: 07/20/2018 3:47 PM by: ALBARO SINGH [[id number]] Allergies Allergen Reactions Ct: Iodinated Contrast- Oral And Iv Dye Hives and Itching Adriana Manning Home Medication Instructions Prior to Surgery SARAH:[id number] Printed on:07/20/18 1124 Medication Information Take last dose on Take the morning of surgery Comment(s) lisinopril (PRINIVIL,ZESTRIL) 20 MG tablet Take 20 mg by mouth daily. omeprazole (PRILOSEC) 20 MG capsule Take 20 mg by mouth daily. venlafaxine (EFFEXOR-XR) 75 MG 24 hr capsule Take 75 mg by mouth daily. Past Medical History: Diagnosis Date Deep vein thrombosis (HCC) 2007/ superficial GERD (gastroesophageal reflux disease) History of stress test greater than 7 years Hypertension PONV (postoperative nausea and vomiting) Thrombophlebitis Past Surgical History: Procedure Laterality Date CHOLECYSTECTOMY DILATION AND CURETTAGE OF UTERUS EGD ENDOSCOPIC ULTRASOUND EXAM N/A 02/14/2017 Procedure: EUS WITH ANES ; Surgeon: Cristal Aguayo MD; Location: [facility]; Service: TONSILLECTOMY TUBAL LIGATION VASCULAR SURGERY varicose veins Social History Social History Marital status: Spouse name: N/A Number of children: N/A Years of education: N/A Occupational History Not on file. Social History Main Topics Smoking status: Never Smoker Smokeless tobacco: Never Used Alcohol use No Drug use: No Sexual activity: Not on file Other Topics Concern Not on file Social History Narrative No narrative on file Family History Problem Relation Age of Onset Diabetes Father Hypertension Father Review of Systems Constitution: Negative for chills, decreased appetite, diaphoresis, fever, weakness, malaise/fatigue, night sweats, weight gain and weight loss. HENT: Negative. Negative for congestion, ear discharge, ear pain, hearing loss, hoarse voice, nosebleeds, odynophagia, sore throat, stridor and tinnitus. Eyes: Negative for blurred vision, discharge, double vision, pain, photophobia, redness, vision loss in left eye, vision loss in right eye, visual disturbance and visual halos. Cardiovascular: Positive for leg swelling. Negative for chest pain, claudication, cyanosis, dyspnea on exertion, irregular heartbeat, near-syncope, orthopnea, palpitations, paroxysmal nocturnal dyspnea and syncope. Respiratory: Negative. Negative for cough, hemoptysis, shortness of breath, sleep disturbances due to breathing, snoring, sputum production and wheezing. Endocrine: Negative for cold intolerance, heat intolerance, polydipsia, polyphagia and polyuria. Hematologic/Lymphatic: Negative for adenopathy and bleeding problem. Does not bruise/bleed easily. Skin: Positive for rash. Negative for color change, dry skin, flushing, itching, nail changes, poor wound healing, skin cancer, suspicious lesions and unusual hair distribution. Musculoskeletal: Negative for arthritis, back pain, falls, gout, joint pain, joint swelling, muscle cramps, muscle weakness, myalgias, neck pain and stiffness. Gastrointestinal: Positive for heartburn. Negative for bloating, abdominal pain, anorexia, change in bowel habit, bowel incontinence, constipation, diarrhea, dysphagia, excessive appetite, flatus, hematemesis, hematochezia, hemorrhoids, jaundice, melena, nausea and vomiting. Genitourinary: Negative for bladder incontinence, decreased libido, dysuria, flank pain, frequency, genital sores, hematuria, hesitancy, incomplete emptying, menorrhagia, missed menses, nocturia, non-menstrual bleeding, pelvic pain and urgency. Neurological: Negative for aphonia, brief paralysis, difficulty with concentration, disturbances in coordination, excessive daytime sleepiness, dizziness, focal weakness, headaches, light-headedness, loss of balance, numbness, paresthesias, seizures, sensory change, tremors and vertigo. Psychiatric/Behavioral: Positive for depression. Negative for altered mental status, hallucinations, hypervigilance, memory loss, substance abuse, suicidal ideas and thoughts of violence. The patient does not have insomnia and is not nervous/anxious. Allergic/Immunologic: Negative for environmental allergies, HIV exposure, hives and persistent infections. Vitals: 07/20/18 1051 BP: 128/86 Pulse: 76 Temp: 98 ?F (36.7 ?C) TempSrc: Oral SpO2: 96% Weight: 129.8 kg (286 lb 2.5 oz) Height: 5' 9 Physical Exam Constitutional: She is oriented to person, place, and time. She appears well-nourished. No distress. Overweight HENT: Head: Normocephalic and atraumatic. Right Ear: External ear normal. Left Ear: External ear normal. Nose: Nose normal. Mouth/Throat: Oropharynx is clear and moist. No oropharyngeal exudate. Eyes: Pupils are equal, round, and reactive to light. Conjunctivae and EOM are normal. Right eye exhibits no discharge. Left eye exhibits no discharge. No scleral icterus. Neck: Normal range of motion. Neck supple. No JVD present. No tracheal deviation present. No thyromegaly present. Cardiovascular: Normal rate, regular rhythm, normal heart sounds and intact distal pulses. Exam reveals no gallop and no friction rub. No murmur heard. Pulmonary/Chest: Effort normal and breath sounds normal. No stridor. No respiratory distress. She has no wheezes. She has no rales. She exhibits no tenderness. Abdominal: Soft. Bowel sounds are normal. She exhibits no distension and no mass. There is no tenderness. There is no rebound and no guarding. No hernia. Musculoskeletal: Normal range of motion. She exhibits edema. She exhibits no tenderness. Lymphadenopathy: She has no cervical adenopathy. Neurological: She is alert and oriented to person, place, and time. She has normal reflexes. She displays normal reflexes. No cranial nerve deficit. She exhibits normal muscle tone. Coordination normal. Skin: Skin is warm and dry. No rash noted. She is not diaphoretic. No erythema. No pallor. Bilateral stasis dermatitis Psychiatric: She has a normal mood and affect. Her behavior is normal. Judgment and thought content normal. Nursing note and vitals reviewed. Albaro Singh DO in this encounter Adriana Manning 1960 Encounter Diagnosis Name Primary? Preop examination Yes Procedure: EUS WITH ANES Surgeon: Cristal Aguayo MD PCP: Jocelin Thomson MD Date of Procedure: 10/04/2019 Assessment: Dictation on: 10/02/2019 9:20 AM by: CORRINA OSORIO [[id number]] 1. LRCRI = 0. (Score/Risk of Major Cardiac Outcomes - 0/0.4%, 1/0.9%, 2/2.4%, 3 or more/>5.4%. This may overestimate the cardiac risks in lower risk procedures and underestimate the risks in vascular procedures. This study has been externally validated). Patient's functional capacity is >4 METS. Patient's procedure is considered low risk. ASA: II Apfel: 3 1. The patient falls into an acceptable cardiac risk for category for their planned procedure per 2014 ACC Guidelines and Recommendations. 2. Endocarditis prophylaxis is not required per 2007 ACC/AHA Guidelines and Recommendations (endorsed by the 2014 ACC Guidelines). 3. Avoid/limit perioperative hypothermia. 4. Perioperative thromboembolic prophylaxis is recommended per 2016 ACCP Guidelines and Recommendations (or 2011 AAOS Guidelines for orthopedic procedures, or 2008 KEYANA Guidelines for neurosurgical procedures). 5. The patient s head of the bed should be elevated to 30 degrees post- operatively unless contraindicated by the procedure 6. The patient has been advised to discontinue NSAID s and alternative medicines (Vitamins, herbals, etc.) seven days prior to surgery. Perioperative management of the patient's antiplatelet therapy is recommended per the 2016 ACC/AHA Guidelines - Focused Update on Duration of Dual Antiplatelet Therapy in Patient's With Coronary Artery Disease or in accordance with their party supply specialist's recommendations. 7. The patient may use appropriate amounts of acetaminophen pre-operatively for pain management if not allergic and if no history of liver disease. 8. The patient was advised not to eat or drink anything after midnight on the evening prior to their procedure except for a sip of water to take any recommended medications. 9. Ordered laboratory tests will be reviewed pre-operatively for any pertinent abnormalities. 10. Post-operative spirometry/volurex, deep breathing maneuvers, and early ambulation is recommended if not contraindicated by the procedure. 11. This report will be made available to the requesting surgeon through the electronic medical records. 1. The patient was advised to alert anesthesia on the day of surgery of their tendency toward post-operative nausea and vomiting/motion sickness. History of Present Illness: Dictation on: 10/02/2019 9:22 AM by: CORRINA OSORIO [[id number]] Allergies Allergen Reactions Ct: Iodinated Contrast- Oral And Iv Dye Hives, Itching and Other (See Comments) Tachycardic Adriana Manning Home Medication Instructions Prior to Surgery SARAH:[id number] Printed on:10/02/19918 Medication Information Take last dose on Take the morning of surgery Comment(s) halcinonide (Halog) 0.1 % Crea Apply 1 application topically once as needed . lisinopril (PRINIVIL,ZESTRIL) 20 MG tablet Take 20 mg by mouth every morning . omeprazole (PRILOSEC) 20 MG capsule Take 20 mg by mouth every morning . venlafaxine (EFFEXOR-XR) 75 MG 24 hr capsule Take 75 mg by mouth every morning . Past Medical History: Diagnosis Date Deep vein thrombosis (HCC) 2007/ superficial right leg GERD (gastroesophageal reflux disease) History of stress test greater than 7 years Hypertension PONV (postoperative nausea and vomiting) Thrombophlebitis Past Surgical History: Procedure Laterality Date CHOLECYSTECTOMY DILATION AND CURETTAGE OF UTERUS EGD ENDOSCOPIC ULTRASOUND EXAM N/A 02/14/2017 Procedure: EUS WITH ANES ; Surgeon: Cristal Aguayo MD; Location: [facility]; Service: EGD ENDOSCOPIC ULTRASOUND EXAM N/A 07/27/2018 Procedure: EUS WITH FNA WITH ANES; Surgeon: Cristal Aguayo MD; Location: [facility]; Service: Gastroenterology TONSILLECTOMY TUBAL LIGATION VASCULAR SURGERY varicose veins Social History Socioeconomic History Marital status: Spouse name: Not on file Number of children: Not on file Years of education: Not on file Highest education level: Not on file Occupational History Not on file Social Needs Financial resource strain: Not on file Food insecurity: Worry: Not on file Inability: Not on file Transportation needs: Medical: Not on file Non-medical: Not on file Tobacco Use Smoking status: Never Smoker Smokeless tobacco: Never Used Substance and Sexual Activity Alcohol use: No Drug use: No Sexual activity: Not on file Lifestyle Physical activity: Days per week: Not on file Minutes per session: Not on file Stress: Not on file Relationships Social connections: Talks on phone: Not on file Gets together: Not on file Attends christian service: Not on file Active member of club or organization: Not on file Attends meetings of clubs or organizations: Not on file Relationship status: Not on file Other Topics Concern Not on file Social History Narrative Not on file Family History Problem Relation Age of Onset No Known Problems Mother Diabetes Father Hypertension Father No Known Problems Sister 10 systems were reviewed and negative, except as noted above. Vitals: 10/02/19 0818 BP: 126/83 Pulse: 79 Resp: 16 Temp: 97.8 F (36.6 C) TempSrc: Oral SpO2: 97% Weight: 130.5 kg (287 lb 11.2 oz) Height: 5' 9 Physical exam: General: NAD EYES: EOMI Neck: Supple Lungs: Clear to auscultation. Heart: regular rate. Abdomen: soft. Non tender. : no suprapubic tenderness. Extremities: No edema. Neuro: Alert, oriented x3. No gross focal deficits. Skin: warm, dry Psych: Mood appropriate documented in this encounter Adriana Manning 1960 Encounter Diagnosis Name Primary? Preop examination Yes Procedure: EUS WITH ANES Surgeon: Cristal Aguayo MD PCP: Jocelin Thomson MD Date of Procedure: 10/04/2019 Assessment: 1.Pancreatic cyst. 2.Postoperative nausea. 3.Hypertension. 4.Reflux disease. 5.History of superficial vein thrombus in the right leg in 2007. 1. LRCRI = 0. (Score/Risk of Major Cardiac Outcomes - 0/0.4%, 1/0.9%, 2/2.4%, 3 or more/>5.4%. This may overestimate the cardiac risks in lower risk procedures and underestimate the risks in vascular procedures. This study has been externally validated). Patient's functional capacity is >4 METS. Patient's procedure is considered low risk. ASA: II Apfel: 3 1. The patient falls into an acceptable cardiac risk for category for their planned procedure per 2014 ACC Guidelines and Recommendations. 2. Endocarditis prophylaxis is not required per 2007 ACC/AHA Guidelines and Recommendations (endorsed by the 2014 ACC Guidelines). 3. Avoid/limit perioperative hypothermia. 4. Perioperative thromboembolic prophylaxis is recommended per 2016 ACCP Guidelines and Recommendations (or 2010 AAOS Guidelines for orthopedic procedures, or 2008 KEYANA Guidelines for neurosurgical procedures). 5. The patient s head of the bed should be elevated to 30 degrees post- operatively unless contraindicated by the procedure 6. The patient has been advised to discontinue NSAID s and alternative medicines (Vitamins, herbals, etc.) seven days prior to surgery. Perioperative management of the patient's antiplatelet therapy is recommended per the 2016 ACC/AHA Guidelines - Focused Update on Duration of Dual Antiplatelet Therapy in Patient's With Coronary Artery Disease or in accordance with their party supply specialist's recommendations. 7. The patient may use appropriate amounts of acetaminophen pre-operatively for pain management if not allergic and if no history of liver disease. 8. The patient was advised not to eat or drink anything after midnight on the evening prior to their procedure except for a sip of water to take any recommended medications. 9. Ordered laboratory tests will be reviewed pre-operatively for any pertinent abnormalities. 10. Post-operative spirometry/volurex, deep breathing maneuvers, and early ambulation is recommended if not contraindicated by the procedure. 11. This report will be made available to the requesting surgeon through the electronic medical records. 1. The patient was advised to alert anesthesia on the day of surgery of their tendency toward post-operative nausea and vomiting/motion sickness. History of Present Illness: The patient presents to the pre-op clinic for risk stratification for planned endoscopic ultrasound with anesthesia to be performed by Dr. Cristal Aguayo on 10/04/2019. The patient was referred here by Dr. Aguayo. The patient is a very pleasant 59-year-old female with a history of pancreatic cyst. She tells me she had a cholecystectomy a couple of years ago. She wound up having a gallstone after the cholecystectomy and wound up getting an ERCP. She has found to have a pancreatic cyst at that time. She has had endoscopic ultrasounds every 1- 2 years to make sure that is stable. She had one about a year and a half ago that was stable. Plan is for a repeat look on , 10/04/2019. She denies any history of coronary artery disease, congestive heart failure, cerebrovascular disease, diabetes, chronic kidney disease, DVT or PE. She does admit to a history of superficial clot in the right leg about 5 years ago. She does admit to a history of postoperative nausea. She was told to let Anesthesia know about this on the day of her procedure. She denies any signs or symptoms of sleep apnea. In terms of functional capacity, she says she can walk up 2 flights of stairs without stopping without chest pain. Functional capacity is greater than 4 METS. She had an EKG on October 02, 2019 at 8:25 a.m. and was personally reviewed by me. It showed normal sinus rhythm. It was exactly the same as an EKG from 07/20/2018 at 10:59 a.m. which I also personally reviewed. It is otherwise nondiagnostic. She denies any recent chest pain or shortness breath. She said she did have the stomach flu over the weekend about 4 or 5 days ago. She had some nausea with diarrhea and some chills and sweats. It ran its course and she has been feeling fine for the past 2 days. She took some Imodium to help with her symptoms. Allergies Allergen Reactions Ct: Iodinated Contrast- Oral And Iv Dye Hives, Itching and Other (See Comments) Tachycardic Adriana Manning Home Medication Instructions Prior to Surgery SARAH:[id number] Printed on:10/02/19 5022 Medication Information Take last dose on Take the morning of surgery Comment(s) halcinonide (Halog) 0.1 % Crea Apply 1 application topically once as needed . lisinopril (PRINIVIL,ZESTRIL) 20 MG tablet Take 20 mg by mouth every morning . omeprazole (PRILOSEC) 20 MG capsule Take 20 mg by mouth every morning . venlafaxine (EFFEXOR-XR) 75 MG 24 hr capsule Take 75 mg by mouth every morning . Past Medical History: Diagnosis Date Deep vein thrombosis (HCC) 2008/ superficial right leg GERD (gastroesophageal reflux disease) History of stress test greater than 7 years Hypertension PONV (postoperative nausea and vomiting) Thrombophlebitis Past Surgical History: Procedure Laterality Date CHOLECYSTECTOMY DILATION AND CURETTAGE OF UTERUS EGD ENDOSCOPIC ULTRASOUND EXAM N/A 02/14/2017 Procedure: EUS WITH ANES ; Surgeon: Cristal Aguayo MD; [facility]; Service: EGD ENDOSCOPIC ULTRASOUND EXAM N/A 07/27/2018 Procedure: EUS WITH FNA WITH ANES; Surgeon: Cristal Aguayo MD; Location: [facility]; Service: Gastroenterology TONSILLECTOMY TUBAL LIGATION VASCULAR SURGERY varicose veins Social History Socioeconomic History Marital status: Spouse name: Not on file Number of children: Not on file Years of education: Not on file Highest education level: Not on file Occupational History Not on file Social Needs Financial resource strain: Not on file Food insecurity: Worry: Not on file Inability: Not on file Transportation needs: Medical: Not on file Non-medical: Not on file Tobacco Use Smoking status: Never Smoker Smokeless tobacco: Never Used Substance and Sexual Activity Alcohol use: No Drug use: No Sexual activity: Not on file Lifestyle Physical activity: Days per week: Not on file Minutes per session: Not on file Stress: Not on file Relationships Social connections: Talks on phone: Not on file Gets together: Not on file Attends christian service: Not on file Active member of club or organization: Not on file Attends meetings of clubs or organizations: Not on file Relationship status: Not on file Other Topics Concern Not on file Social History Narrative Not on file Family History Problem Relation Age of Onset No Known Problems Mother Diabetes Father Hypertension Father No Known Problems Sister 10 systems were reviewed and negative, except as noted above. Vitals: 10/02/19 0818 BP: 126/83 Pulse: 79 Resp: 16 Temp: 97.8 F (36.6 C) TempSrc: Oral SpO2: 97% Weight: 130.5 kg (287 lb 11.2 oz) Height: 5' 9 Physical exam: General: NAD EYES: EOMI Neck: Supple Lungs: Clear to auscultation. Heart: regular rate. Abdomen: soft. Non tender. : no suprapubic tenderness. Extremities: No edema. Neuro: Alert, oriented x3. No gross focal deficits. Skin: warm, dry Psych: Mood appropriate documented in this encounter INTERVAL HISTORY AND PHYSICAL Patient Name: Adriana Manning Admit Date: [id number] MR #: [id number] : 1960 The H&P has been reviewed and the patient has been examined. I concur with the findings of the H&P. There are no significant changes. It is appropriate to proceed with the planned procedure. Cristal Aguayo MD 10/04/2019 9:54 AM Adriana Manning 1960 Encounter Diagnosis Name Primary? Preop examination Yes Procedure: EUS WITH ANES Surgeon: Cristal Aguayo MD PCP: Jocelin Thomson MD Date of Procedure: 10/04/2019 Assessment: 1.Pancreatic cyst. 2.Postoperative nausea. 3.Hypertension. 4.Reflux disease. 5.History of superficial vein thrombus in the right leg in 2007. 1. LRCRI = 0. (Score/Risk of Major Cardiac Outcomes - 0/0.4%, 1/0.9%, 2/2.4%, 3 or more/>5.4%. This may overestimate the cardiac risks in lower risk procedures and underestimate the risks in vascular procedures. This study has been externally validated). Patient's functional capacity is >4 METS. Patient's procedure is considered low risk. ASA: II Apfel: 3 1. The patient falls into an acceptable cardiac risk for category for their planned procedure per 2014 ACC Guidelines and Recommendations. 2. Endocarditis prophylaxis is not required per 2007 ACC/AHA Guidelines and Recommendations (endorsed by the 2014 ACC Guidelines). 3. Avoid/limit perioperative hypothermia. 4. Perioperative thromboembolic prophylaxis is recommended per 2016 ACCP Guidelines and Recommendations (or 2011 AAOS Guidelines for orthopedic procedures, or 2008 KEYANA Guidelines for neurosurgical procedures). 5. The patient s head of the bed should be elevated to 30 degrees post- operatively unless contraindicated by the procedure 6. The patient has been advised to discontinue NSAID s and alternative medicines (Vitamins, herbals, etc.) seven days prior to surgery. Perioperative management of the patient's antiplatelet therapy is recommended per the 2016 ACC/AHA Guidelines - Focused Update on Duration of Dual Antiplatelet Therapy in Patient's With Coronary Artery Disease or in accordance with their party supply specialist's recommendations. 7. The patient may use appropriate amounts of acetaminophen pre-operatively for pain management if not allergic and if no history of liver disease. 8. The patient was advised not to eat or drink anything after midnight on the evening prior to their procedure except for a sip of water to take any recommended medications. 9. Ordered laboratory tests will be reviewed pre-operatively for any pertinent abnormalities. 10. Post-operative spirometry/volurex, deep breathing maneuvers, and early ambulation is recommended if not contraindicated by the procedure. 11. This report will be made available to the requesting surgeon through the electronic medical records. 1. The patient was advised to alert anesthesia on the day of surgery of their tendency toward post-operative nausea and vomiting/motion sickness. History of Present Illness: The patient presents to the pre-op clinic for risk stratification for planned endoscopic ultrasound with anesthesia to be performed by Dr. Cristal Aguayo on 10/04/2019. The patient was referred here by Dr. Aguayo. The patient is a very pleasant 59-year-old female with a history of pancreatic cyst. She tells me she had a cholecystectomy a couple of years ago. She wound up having a gallstone after the cholecystectomy and wound up getting an ERCP. She has found to have a pancreatic cyst at that time. She has had endoscopic ultrasounds every 1- 2 years to make sure that is stable. She had one about a year and a half ago that was stable. Plan is for a repeat look on , 10/04/2019. She denies any history of coronary artery disease, congestive heart failure, cerebrovascular disease, diabetes, chronic kidney disease, DVT or PE. She does admit to a history of superficial clot in the right leg about 5 years ago. She does admit to a history of postoperative nausea. She was told to let Anesthesia know about this on the day of her procedure. She denies any signs or symptoms of sleep apnea. In terms of functional capacity, she says she can walk up 2 flights of stairs without stopping without chest pain. Functional capacity is greater than 4 METS. She had an EKG on October 02, 2019 at 8:25 a.m. and was personally reviewed by me. It showed normal sinus rhythm. It was exactly the same as an EKG from 07/20/2018 at 10:59 a.m. which I also personally reviewed. It is otherwise nondiagnostic. She denies any recent chest pain or shortness breath. She said she did have the stomach flu over the weekend about 4 or 5 days ago. She had some nausea with diarrhea and some chills and sweats. It ran its course and she has been feeling fine for the past 2 days. She took some Imodium to help with her symptoms. Allergies Allergen Reactions Ct: Iodinated Contrast- Oral And Iv Dye Hives, Itching and Other (See Comments) Tachycardic Adriana Manning Home Medication Instructions Prior to Surgery SARAH:[id number] Printed on:10/02/19918 Medication Information Take last dose on Take the morning of surgery Comment(s) halcinonide (Halog) 0.1 % Crea Apply 1 application topically once as needed . lisinopril (PRINIVIL,ZESTRIL) 20 MG tablet Take 20 mg by mouth every morning . omeprazole (PRILOSEC) 20 MG capsule Take 20 mg by mouth every morning . venlafaxine (EFFEXOR-XR) 75 MG 24 hr capsule Take 75 mg by mouth every morning . Past Medical History: Diagnosis Date Deep vein thrombosis (HCC) 2008/ superficial right leg GERD (gastroesophageal reflux disease) History of stress test greater than 7 years Hypertension PONV (postoperative nausea and vomiting) Thrombophlebitis Past Surgical History: Procedure Laterality Date CHOLECYSTECTOMY DILATION AND CURETTAGE OF UTERUS EGD ENDOSCOPIC ULTRASOUND EXAM N/A 02/14/2017 Procedure: EUS WITH ANES ; Surgeon: Cristal Aguayo MD; Location: [facility]; Service: EGD ENDOSCOPIC ULTRASOUND EXAM N/A 07/27/2018 Procedure: EUS WITH FNA WITH ANES; Surgeon: Cristal Aguayo MD; Location: [facility]; Service: Gastroenterology TONSILLECTOMY TUBAL LIGATION VASCULAR SURGERY varicose veins Social History Socioeconomic History Marital status: Spouse name: Not on file Number of children: Not on file Years of education: Not on file Highest education level: Not on file Occupational History Not on file Social Needs Financial resource strain: Not on file Food insecurity: Worry: Not on file Inability: Not on file Transportation needs: Medical: Not on file Non-medical: Not on file Tobacco Use Smoking status: Never Smoker Smokeless tobacco: Never Used Substance and Sexual Activity Alcohol use: No Drug use: No Sexual activity: Not on file Lifestyle Physical activity: Days per week: Not on file Minutes per session: Not on file Stress: Not on file Relationships Social connections: Talks on phone: Not on file Gets together: Not on file Attends christian service: Not on file Active member of club or organization: Not on file Attends meetings of clubs or organizations: Not on file Relationship status: Not on file Other Topics Concern Not on file Social History Narrative Not on file Family History Problem Relation Age of Onset No Known Problems Mother Diabetes Father Hypertension Father No Known Problems Sister 10 systems were reviewed and negative, except as noted above. Vitals: 10/02/19 0818 BP: 126/83 Pulse: 79 Resp: 16 Temp: 97.8 F (36.6 C) TempSrc: Oral SpO2: 97% Weight: 130.5 kg (287 lb 11.2 oz) Height: 5' 9 Physical exam: General: NAD EYES: EOMI Neck: Supple Lungs: Clear to auscultation. Heart: regular rate. Abdomen: soft. Non tender. : no suprapubic tenderness. Extremities: No edema. Neuro: Alert, oriented x3. No gross focal deficits. Skin: warm, dry Psych: Mood appropriate documented in this encounter Ema Taylor RN - 07/20/2018 11:07 AM Lilliana Waters RN - 10/04/2019 11:22 AM Lilliana Dc RN - 10/04/2019 11:01 AM Ema Doherty RN - 10/04/2019 10:13 AM EST Nursing Notes (unrecognized section and content) Report to endoscopy unit in [facility] area at 0900 Use parking in the GREEN garage or GREEN superintendent commissary. A parking voucher will be provided for you. You will need to have a designated m48/m60 tank driver, who will also be staying in the endoscopy unit until discharge. Please follow instructions for any bowel prep you are given. NPO after midnight. Liquid diet day before procedure if instructed. Take medications as advised. Bring rescue inhalers if you have them. Wear comfortable clothing, no jewelry. Bring insurance cards and photo ID.in this encounter PT REF WC AND LEFT AMBULATORY WITH HARSH DC INSTRUCTIONS GIVEN TO PT AND HARSH AND BOTH VERBALIZED UNDERSTANDING DR AGUAYO TALKED WITH HARSH 1~.5cc clear fluid, thin Pancreatic body cyst CEA/amylace/cyto Buccal brush obtained 2 ~1cc clear, blood tinged Pancreatic body cyst CEA/amylace/cyto Buccal brush obtianed Sedation and monitoring per anesthesia Patient states /m48/m60 tank driver, Harsh, will be in endo waiting room. Ok to share. Cell is [phone]. documented in this encounter Reason for Visit (unrecogniz ed section and content) Reason Comments Sore Throat Sinusitis Been going on for ab out a week. Reason Comments rev us results Specialty Diagnoses / Procedures Referred By Ricardo agarwal Referred To Contact Radiology Diagnoses Postmenopausal bleeding Procedures US PELVIS TRANSABDOMINAL WITH TRANSVAGINAL US pelvis transvaginal Becky Bauer MD [address] [place] [address] [facility] Medical Office, [address] [address] Referral ID Status Reason Start Date Expiration Date Visits Requested Visits Authorized [id number] Pending Review Perform Procedure 08/16/2023 02/12/2024 1 1 Reason Comments Establish Care Lower leg discolorat ion, wants them checked out, primarily L leg, has had issues since vein removal Pre-Procedure Instructions - Monica Malhotra MA - 10/02/2019 8:15 AM ESTPre- Procedure Instructions - Monica Malhotra MA - 10/02/2019 8:15 AM EST Miscellaneous Notes (unrecog nized section and content) Patient Instructions for [facility]: Prior to surgery: Please contact your Surgeon's office for the scheduled time of your surgery. Report to the Surgery Family Waiting Area in the sm[facility]s station area [facility] 1 1/2-2 hours prior to your surgery. You may use the [employer] parking available at the Main Entrance/Blue Area of [facility] - a voucher for parking will be provided to you. One family member may accompany you back into the Pre-Op Area. Do not eat or drink anything after midnight or as directed, including gum, mints, and cough drops. No smoking after midnight. No alcohol 24 hours prior to your surgery. Please take any medications you have been instructed to take the morning of your surgery with small sips of water. Please be sure to wear comfortable, appropriate clothing. Please remove all jewelry and piercing's, including wedding rings. Leave all valuable items at home. Shower using anti-bacterial soap or as advised by your Surgeon's office Do not apply any makeup or lotions. Remove all nail greek for surgeries involving extremities. Please remember to bring both your insurance card and a photo ID with you on the day of surgery. After your surgery: If you are having outpatient surgery - you must have a licensed m48/m60 tank driver to take you home. The expectation is that this m48/m60 tank driver will remain at the hospital for the duration of your procedure. You are advised to have a family member with you for at least 24 hours after being under Anesthesia. documented in this encounter Patient Instructions for [facility]: Prior to surgery: Please contact your Surgeon's office for the scheduled time of your surgery. Report to the Surgery Family Waiting Area in the [facility] 1 1/2-2 hours prior to your surgery. You may use the Retail And Promotions Coordinator parking available at the Main Entrance/Blue Area of [facility] - a voucher for parking will be provided to you. One family member may accompany you back into the Pre-Op Area. Do not eat or drink anything after midnight or as directed, including gum, mints, and cough drops. No smoking after midnight. No alcohol 24 hours prior to your surgery. Please take any medications you have been instructed to take the morning of your surgery with small sips of water. Please be sure to wear comfortable, appropriate clothing. Please remove all jewelry and piercing's, including wedding rings. Leave all valuable items at home. Shower using anti-bacterial soap or as advised by your Surgeon's office Do not apply any makeup or lotions. Remove all nail greek for surgeries involving extremities. Please remember to bring both your insurance card and a photo ID with you on the day of surgery. After your surgery: If you are having outpatient surgery - you must have a licensed m48/m60 tank driver to take you home. The expectation is that this m48/m60 tank driver will remain at the hospital for the duration of your procedure. You are advised to have a family member with you for at least 24 hours after being under Anesthesia. documented in this encounter Care Teams (unrecognized sec tion and content) Jig Mill Operator Relationship Specialty Start Date End Date Jocelin Thomson MD [address] [place] [address] PCP - General 07/24/19 Disha Bangura APRN-MANAGER [facility] Chucky Rashaun Bashir [facility] [address] [place] [address] PCP - MMO ACO PCP 05/21/23 Jig Mill Operator Relationship Specialty Start Date End Date Jocelin Thomson MD [facility] [place] [address] PCP - General 07/24/19 Disha Bangura APRN-MANAGER [facility] [address] [facility] [place] [address] [place] [address] PCP - MMO ACO PCP 05/21/23 Jig Mill Operator Relationship Specialty Start Date End Date [facility] [place] [address] PCP - General Family Medicine 02/02/17 Jig Mill Operator Relationship Specialty Start Date End Date GarlandkarisJocelin cameron MD [address] [place] [phone] PCP - General Family Medicine 02/02/17 Jig Mill Operator Relationship Specialty Start Date End Date Jocelin Thomson MD [address] [place] [phone] PCP - General Family Medicine 02/02/17 FOR RECORDS PERTAINING TO PATIENTS WHO ARE OR HAVE BEEN ENROLLED IN A CHEMICAL DEPENDENCY/SUBSTANCEABUSE PROGRAM, SOME INFORMATION MAY BE OMITTED. This clinical summary was aggregated from multiple sources. Caution should be exercised in using it in the provision of clinical care. This summary normalizes information from multiple sources, and as a consequence, information in this document may materially change the coding, format and clinical context of patient data. In addition, data may be omitted in some cases. CLINICAL DECISIONS SHOULD BE BASED ON THE PRIMARY CLINICAL RECORDS. [facility]. provides no warranty or guarantee of the accuracy or completeness of information in this document.
== END | disposition home or self-care (01) ==
LOC: US 10:17
PROVIDERS: PCP Family Medicine; Referring Provider Obstetrics & Gynecology; Visit Provider Obstetrics & Gynecology
DX: N93.9 Abnormal uterine and vaginal bleeding, unspecified (principal)
CPT/HCPCS: 76830; 76856

== ENCOUNTER 2024-02-28 05:20 | Day surgery (SDC) | payer OTHER, SELFPAY ==
--- NOTE | 2024-02-22 09:02 | EKG12_ITS ---
Test Reason : PRE-OP Blood Pressure : / mmHG Vent. Rate : 085 BPM Atrial Rate : 085 BPM P-R Int : 140 ms QRS Dur : 086 ms QT Int : 356 ms P-R-T Axes : 027 -58 010 degrees QTc Int : 423 ms Normal sinus rhythm Left axis deviation Septal infarct , age undetermined Abnormal ECG Confirmed by JUAN SHAH, MIKE ([id number]), publication editor BEKAH PAULINO ([id number]) on 02/22/2024 1:00:09 PM Referred By: Shelby Majano Confirmed By:MIKE MARTINEZ MD
[2024-02-22 09:50] LABS: Hematocrit 51.5 % (37-47); Mean Corp Hgb Conc 31.1 g/dL (32-36); Mean Corpuscular Hgb 27.1 pg (27.0-32.0); Mean Corpuscular Volume 87.1 fL (81-99); Platelet Count 297 K/mm3 (150-450); RBC Distribution Width CV 14.8 % (11.6-14.6); RBC Distribution Width SD 47.6 fl (35.1-43.9); Red Blood Count 5.91 M/mm3 (4.2-5.4); White Blood Count 7.7 K/mm3 (4.4-11.0)
[2024-02-22 10:06] LABS: Magnesium 2.2 mg/dL (1.6-2.6)
[2024-02-22 10:10] LABS: ALB/GLOB Ratio 0.8 RATIO (0.9-2.4); AST(SGOT) 23 U/L (15-37); Alanine Aminotransfer ALT/SGPT 33 U/L (13-56); Alkaline Phosphatase 56 U/L (45-117); Anion Gap 5 (5-15); BUN 10 mg/dL (7-18); BUN/Creat Ratio 9.2 RATIO (10-20); Calcium,Total 8.8 mg/dL (8.5-10.1); Chloride 110 mmol/L (98-107); Creatinine, Serum 1.09 mg/dL (0.55-1.02); EST Glomerular Filtration Rate 54 mL/min (>60); Est Glom Filt Rate - Afr Amer 66 mL/min (>60); Globulin 3.7 g/dL (2.2-4.2); Glucose 96 mg/dL (74-106); Potassium 4.1 mmol/L (3.5-5.1); Protein, Total 6.7 g/dL (6.4-8.2); Sodium Level 139 mmol/L (136-145)
--- NOTE | 2024-02-27 16:44 | HP.PCM_ITS ---
History and Physical Date of Admission: 02/28/24 Intake Vital Signs 12/30/2412:06 02/06/2411:21 02/06/2411:21 Height 5 ft 8.5 in 5 ft 8.5 in 5 ft 8.5 in Weight: 284 lb 2 oz BMI 42.5 BP 157/96 H Intake Visit Reasons: total robotic hyst. BSO Manager Packaging Required: No Is patient in pain?: No Allergies Iodinated Contrast Media Allergy (Mild, Verified 02/07/24 11:21) Rash Medications lisinopril 20 mg tablet 20 mg PO DAILY 10/26/23 [History Confirmed 02/07/24] mecobalamin (vitamin B12) 1,000 mcg chewable tablet 1,000 mcg PO DAILY 10/26/23 [History Confirmed 02/07/24] omeprazole 20 mg capsule,delayed release 20 mg PO DAILY 10/26/23 [History Confirmed 02/07/24] venlafaxine 75 mg capsule,extended release 24 hr (Effexor XR) 75 mg PO DAILY 10/26/23 [History Confirmed 02/07/24] norethindrone acetate 5 mg tablet 5 mg PO BID #60 tabs 12/19/23 [Rx Confirmed 02/07/24] Post menopausal: No Patient : No : No PFSH Medical History GERD (gastroesophageal reflux disease) Hypertension Surgical History H/O tubal ligation Social History household members: spouse current occupational status: employed 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 BSO Details: merissa GONZALEZ is a 63 year old (vaginal delivery) who presents for consultation for hysterectomy. She has an enlarged fibroid uterus (posterior fibroid) and has been experiencing postmenopausal bleeding for a couple of years. EMB 08/2023 in [place] was benign. She states that her providers there only offered progesterone therapy and would not give her options for iud, ablation, or her desired hysterectomy. She would like to discuss hysterectomy today to help relieve pressure sensation and bleeding. She has a maternal aunt that from a female cancer but she is unsure if this was uterine or ovarian. Her pap smears have all been normal. The following is her ultrasound: FINDINGS: The uterus is retroflexed and is in a midline position. The uterus measures 8.43 x 7.80 x 7.98 cm. Normal uterine cervix. The endometrium measures 5 mm in thickness, and is hyperechoic. There is no demonstrated endometrial mass. Sonography notes at least 3 uterine fibroids with the largest measuring 5.2 x 3.7 x 3.4 cm I.U.D. - The patient does not have an I.U.D. The right ovary is visualized. The right ovary measures 1.8 x 1.5 x 2.4 cm. There is no right ovarian cyst or ovarian mass. There is no visualized right adnexal mass or complex lesion. There is normal arterial and normal venous vascularity. The left ovary is visualized. The left ovary measures 1.5 x 1.1 x 1.3 cm. There is no left ovarian cyst or ovarian mass. There is no visualized left adnexal mass or complex lesion. There is normal arterial and normal venous vascularity. There is no fluid in the cul-de-sac. The bladder is sonographically normal US/Pelvic w/ Transvaginal IMPRESSION: Enlarged fibroid uterus Endometrial thickness is at the upper limits of normal at 5 mm. No suspicious endometrial mass or polyp Sonographically normal ovaries and bladder. ROS Const ROS Unobtainable: All systems reviewed & are unremarkable except as noted in H Resp Resp: Reports system reviewed and no additional complaints, except as documented; Denies cough GI GI: Reports as per HPI Psych Psych: Reports system reviewed and no additional complaints, except as documented Exam Const General: cooperative, healthy appearing, comfortable and no acute distress Resp Effort & Inspection: normal respiratory effort Skin General: no rashes or lesions noted Psych Appearance: grossly normal Speech and Movement: speech and movement normal Coding Level of Care Code Off vis,est,level 4 Diagnoses Abnormal uterine bleeding (AUB) N93.9 Uterine leiomyoma, unspecified location D25.9 Uterine leiomyoma location: unspecified location Postmenopausal bleeding N95.0 GERD (gastroesophageal reflux disease) K21.9 Hypertension I10 Assessment and Plan Assessment and Plan (1) Abnormal uterine bleeding (AUB): Status: Acute Comment: pelvic US (2) Uterine fibroid: Status: Acute Qualifiers: Uterine leiomyoma location: unspecified location Qualified Code(s): D25.9 - Leiomyoma of uterus, unspecified (3) Postmenopausal bleeding: Status: Acute Comment: ROR for US and EMB done in [place]. Rx aygestin. Plan hysterectomy once records reviewed. (4) GERD (gastroesophageal reflux disease): Status: Acute (5) Hypertension: Status: Chronic Plan After discussing the patient's diagnosis and treatment plan options, patient wishes to proceed with surgical management. I have discussed with the patient the risks, benefits, and alternatives of the procedure which include but are not limited to risks of anesthesia, bleeding, infection, possible damage to bowel, bladder, or surrounding vasculature which could lead to additional surgery to evaluate any complications. Patient agrees to procedure and wishes to proceed. ACOG/uptodate references given for additional information regarding procedure. plan is for a total robotic hysterectomy, bso, cysto on february 28, 2024
[2024-02-28] VITALS (11 sets, daily range): BP systolic 121–150; BP diastolic 76–95; PULSE 84–98; RESP 14–20; TEMP 36.9–37.8; O2SAT 90–99; BMI 42.0
[2024-02-28 06:10] LABS: Bedside Glucose 106 mg/dL (74-106)
[2024-02-28] MEDS: Lactated Ringers 1,000 ML 40 ML IV (06:12)
[2024-02-28] MEDS: Magnesium 1 GM over 15 mins IV (06:13)
[2024-02-28] MEDS: Acetaminophen 500 MG Tablet 1000 MG PO (06:14)
[2024-02-28] MEDS: Phenazopyridine 95 MG Tablet 190 MG PO (06:14)
[2024-02-28] MEDS: Celecoxib 200 MG Capsule 400 MG PO (06:15)
[2024-02-28] MEDS: Gabapentin 600 MG Tablet PO (06:15)
[2024-02-28] MEDS: dexAMETHasone 4 MG/ML Vial 8 MG IV (06:15)
--- NOTE | 2024-02-28 07:25 | PCM.DC ---
Discharge Instructions Diet Discharge Diet: No restrictions Activity May resume sexual activity in: 6 weeks Weight Bearing Status: Full weight bearing Dressing / Incision Call your doctor if your incision/area has: Continuous Slow Oozing, Sudden Increased Bleeding, Increased Pain/ Swelling, Increased Redness and Foul Smelling Discharge Call your doctor if you observe: Fever of 101 or Higher, Using more than 1 pad per hour, Shortness of breath, Chest pain and Uncontrolled pain Suture Line Care: Avoid Pulling/Pushing and Avoid Pinching/Bending Remove Dressing in: 1 week (if present) Cleanse incision/area with: Soap & Water and Keep Dressing Clean & Dry Follow Up Care Please Follow Up With: Shelby Majano DO When: Call to make an appointment with your doctor for a postop visit in 2 and 6 weeks Test Results: Test results from this visit will be discussed in further detail at your follow-up appointment, if applicable. Discharge Plan Admission Primary Reason for Your Visit: hysterectomy Attending Provider: Shelby Majano Primary Care Provider: Jocelin Menon Discharge Orders/Prescriptions Prescriptions: New ibuprofen 800 mg tablet 800 mg PO Q8H PRN (Reason: pain) Qty: 30 0RF oxycodone-acetaminophen [Percocet] 5-325 mg tablet 1 tab PO Q4H PRN (Reason: pain) 7 Days Qty: 20 0RF Rx Instructions: 1-2 tabs q 4 hrs as needed for pain docusate sodium [Colace] 100 mg capsule 100 mg PO DAILY Qty: 30 0RF Continued venlafaxine [Effexor XR] 75 mg capsule,extended release 24hr 75 mg PO DAILY lisinopril 20 mg tablet 20 mg PO DAILY mecobalamin (vitamin B12) 1,000 mcg tablet,chewable 1,000 mcg PO DAILY omeprazole 20 mg capsule,delayed release(DR/EC) 20 mg PO DAILY semaglutide 1 mg/dose (4 mg/3 mL) pen injector 0.5 mg subcut QWEEK Patient Comments: PT TAKING FOR WEIGHT LOSS Discontinued norethindrone acetate 5 mg tablet 5 mg PO BID Qty: 60 2RF Referrals / Follow Up: Jocelin Menon MD [Primary Care Provider] - Disposition Disposition (needs filled in before D/C Order can be placed): Home, Self Care
--- NOTE | 2024-02-28 07:30 | HYST_PTH ---
PATIENT: RUPINDER GONZALEZ LOC: [facility] U#:[id number] AGE/SX: 63/F ROOM: RE02/28/[address]: Dr. Shelby Majano DO : 1960 BED: DIS: 02/28/2024 SPEC #: [id number] RECD: 02/28/24 10:25 STATUS: JOHN KEITH #: [id number] CARIDAD: 02/28/24 07:[address]: Shelby Majano DEPT: SURGICAL PATHOLOGY RECD BY: Vesta Parra ENTERED: 02/28/24 12:15 SP TYPE: HYSTERECT OTHR DR: Dr. Jocelin Menon MD Tissues: Uterus, NOS Procedures: Surgery Specimen Level V HEADER OPERATION: ERAS, Lap total robotic hysterectomy BSO PRE-OP DIAGNOSIS: Abnormal uterine bleeding, Uterine fibroid TISSUE SUBMITTED: Uterus, Bilateral fallopian tubes and ovaries MICROSCOPIC DIAGNOSIS Uterus, bilateral fallopian tubes and ovaries, hysterectomy and bilateral salpingo-oopherectomy: Cervix - mild chronic inflammation. Endometrium - exogenous hormone effects. Myometrium - Intramural and subserosal leiomyomas (largest measuring 5.0cm in greatest dimension) Bilateral fallopian tubes- No pathologic diagnosis. Right ovary - Serous cystadenoma (1.8 cm in greatest dimension) Left ovary - Serous cyst adenofibroma (2.0 cm in greatest dimension) See comment. PAOLA/ 02/29/24 COMMENT Larger leiomyomas show chronic inflammatory cell infiltrates, predominantly consists of lymphocytes. Case has been reviewed in consultation with Dr. Arzate who concurs with the above diagnosis. IDC:AM MICROSCOPIC DESCRIPTION Slides are reviewed. GROSS DESCRIPTION Received in fixative is one container labeled with the patient's name and designated uterus, bilateral fallopian tubes and ovaries. The specimen consists of a hysterectomy specimen consisting of a uterus with cervix with attached bilateral fallopian tubes and ovaries. The body of the uterus is markedly distorted. The uterus with cervix weighs 309 gm and measures 14.0 x 12.0 x 9.0 cm. The serosal surface is focally ragged. The ectocervical mucosa is unremarkable. The external os is oval and patulous in contour. The endocervical canal measures 4.0 cm in length and the endocervical mucosa is cabrales glistening unremarkable. The triangular endometrial cavity measures 5.0 cm in length and up to 4.0 cm in width. The endometrium is congested focally hemorrhagic without any mass lesions and measures 0.2 cm in thickness. Section of the uterine wall reveal multiple intramural and subserosal nodular masses. The largest mass measures 5.0cm in greatest dimension. The largest mass shows disrupted cut surfaces. The rest of the masses reveal cabrales whorled cut surfaces without areas of hemorrhage, necrosis or cystic degeneration. The right fallopian tube measures 2.0cm in length and 0.5cm in diameter. Distinct fimbrial end is not identified. Sections reveal unremarkable cut surfaces. The right ovary measures 2.5 x 2.0 x 1.0cm. Sections reveal a cyst filled with mucoid material measuring 1.8cm in greatest dimension. The left fallopian tube measures 1.0cm in length and 0.2cm in diameter. No distinct fimbrial end is identified. The left ovary measures 2.5 x 1.5 x 1.5cm. Sections reveal a cyst filled with mucoid material and measuring 2.0cm in greatest dimension. Focal area also shows papillations which measures 0.5 cm in greatest dimension. Manager Party sections are submitted in 14 cassettes as follows: 1 - anterior cervix, 2 - posterior cervix, 3 & 4 - anterior uterine wall, 5 & 6 - posterior uterine wall, 7&8- Largest nodular mass, 9- Second largest nodular mass, 10- third and fourth largest nodular mass, 11- right fallopian tube and ovary, 12- more section right ovary, 13- left fallopian tube and ovary, 14- more section of left ovary SJ: 02/28/24 TC:1 CPT: 53964
[2024-02-28] MEDS: Cefazolin 3 GM in 0.9% Normal Saline (100mL Bag) 100 ML IV (07:55)
[2024-02-28] MEDS: Bupivacaine 0.25% 30 ML Vial (09:49)
--- NOTE | 2024-02-28 09:52 | PCM.OPRPT ---
Problems Associated Problem List Diagnoses (1) Abnormal uterine bleeding (AUB): (2) Uterine fibroid: (3) Postmenopausal bleeding: Report of Operation Date of Procedure: 02/28/24 Pre-Operative Diagnosis: large fibroid uterus, postmenopausal bleeding Post-Operative Diagnosis: large fibroid uterus, postmenopausal bleeding, posterior cul-de-sac adhesions, ovarian and fallopian tube adhesions Surgery/Procedure Performed:: total robotic hysterectomy, lysis of adhesions, bilateral salpingo-oophorectomy, cystoscopy Description of Surgical Findings:: large posterior fibroid adherent to the cul-de-sac. Adhesions of both ovaries to the side alvarado. large boggy uterus. normal bladder, bowel and liver. Surgeon: Shelby Majano foam rubber curer: Ike Hudson Type of Anesthesia: General Specimen's removed: uterus, fallopian tubes, ovaries Drains: none Estimated Blood Loss (mL): 100cc Fluids Replaced: 1500cc Description of Procedure: Reason for surgery: This is a 63-year-old who presented to my office with history of lower pelvic pain, enlarged fibroid uterus, and postmenopausal bleeding. The planned procedure is for a robotic hysterectomy the risks benefits and alternatives were discussed with the patient the patient had a clear understanding of the procedure and a consent form was signed. Procedure: The patient was placed in the dorsal low lithotomy position and prepped and draped in the normal sterile fashion both abdominally and in the perineum. Her legs were placed in stirrups a Munoz catheter was inserted into the urethra without difficulty. A weighted speculum was placed in the vagina and a single-tooth tenaculum was used to grasp the anterior lip of the cervix. An advincula uterine manipulator was inserted through the cervix without complication. It was then tied into place at the 2 and 10:00 locations on the cervix. Gloves were changed and attention was turned towards the abdomen. Approximately 23 cm above the pubic symphysis in the midline, and after Marcaine injection, a 8 mm incision was made. An 8 mm trocar was inserted through the laparoscope, then inserted into the abdomen under direct visualization using the laparoscope. Good abdominal placement was noted and no complications were appreciated. An air seal device was utilized to create pneumoperitoneum. At 12 cm lateral to the midline on the left and right sides 8 mm accessory ports were placed. Next a left upper quadrant 8 mm hospital aides and assistants teacher port site was placed. The airseal device was noted to not be holding air as usual. A 5th 5mm trocar was then inserted at the right upper quadrant to help with instrument passing while the airseal device was left blocked to hold air. The patient was placed in steep Trendelenburg position. The robot was docked. The hysterectomy was initiated first by taking down adhesions of the posterior cul-de-sac and identifying a large fibroid. Next, the round ligament on each side using the vessel sealer device. The peritoneum between the round ligament and the IP ligament was opened using electrocautery and extended the length of the IP ligament. The IP ligament was then taken down using the vessel sealer device. These areas were freed without complication but was noted to be adherent to both the uterus and the side wall of the abdomen. The broad ligament was then and taken down using the vessel sealer device. Next the bladder flap was taken down without complication. This was done using monopolar cautery to the level of the cervical vaginal junction. After the bladder flap was created, uterine vessels were then isolated and cauterized using the vessel sealer device and EndoShears. At this point the uterine vessels were taken down further starting from the ascending branch, dissecting along the edges of the cervix to the level of the cervical vaginal junction with hemostasis appreciated. The cervical vaginal junction was then using monopolar cautery in a circumferential pattern across the superior aspect of the cervix. The specimen was delivered through the vagina and sent to pathology. The remaining vaginal cuff was then closed using a V lock suture. This was performed in a running technique. Excellent hemostasis was obtained and good closure was noted. Irrigation was then performed. All operative sites were noted to be hemostatic. A cystoscopy was performed with a 70 degree cystoscope through the urethra into the bladder without complication. The bladder was instilled with approximately 250 cc of normal saline. Intraoperative images were made. Ureteral orifices and jets were identified. No suture material was appreciated in the bladder. The bladder was then drained and cystoscope was removed. The abdominal cavity was again examined using the laparoscope after the robot was undocked. All operative sites were noted to be hemostatic. The trochars were removed under direct visualization without complication and pneumoperitoneum was reduced. At this point the skin was then closed using 4-0 Monocryl subcuticular stitch and sealed with surgical glue. The patient tolerated the procedure well sponge lap and needle counts were correct x2 the patient was taken to the recovery room in stable condition. Complications none Admit VTE Documentation VTE Present on Admission: No VTE Mechan Device Prophylaxis: SCD's VTE Pharm Prophylaxis ordered?: No Multi Select Codes Urinary/Genital Urinary/Genital CPT Codes: 19360 TLH+BS/O >250gr uterus
[2024-02-28] MEDS: Lactated Ringers 1,000 ML 100 ML IV (11:16)
[2024-02-28] MEDS: Oxycodone/Apap 5/325 Tablet PO (12:17)
== END 2024-02-28 12:54 | disposition home or self-care (01) ==
LOC: SDC 05:21 → AC 05:21
PROVIDERS: Anesthesiology; PCP Family Medicine; Referring Provider Obstetrics & Gynecology; Visit Provider Obstetrics & Gynecology
PROC: 0UT94ZZ Resection of Uterus, Percutaneous Endoscopic Approach (ICD-10-PCS; CPT 58573; principal; 2024-02-28 07:10)
DX: D25.9 Leiomyoma of uterus, unspecified (principal); K21.9 Gastro-esophageal reflux disease without esophagitis; I10 Essential (primary) hypertension; R93.89 Abnormal findings on diagnostic imaging of other specified body structures; D27.0 Benign neoplasm of right ovary; D27.1 Benign neoplasm of left ovary; N72 Inflammatory disease of cervix uteri; Z79.899 Other long term (current) drug therapy
CPT/HCPCS: 58573; 00840; 80053; 82962; 83735; 85027; 86850; 86900; 86901; 88307; 93005; J7120; J2405; J3475